=== PATIENT | male | born 1965 | race Caucasian/White ===

== ENCOUNTER 2016-10-06 03:50 | Inpatient (IN) ==
[2016-10-06] MEDS ORDERED: Ondansetron ODT 4 MG TAB.RAPDIS SL ONE (04:18)
[2016-10-06] MEDS ORDERED: 0.9 % Sodium Chloride 1,000 ML IVC ONE ×2 (04:18→05:28)
[2016-10-06] MEDS ORDERED: *HR* Morphine 2 MG/ML SYRINGE IVP ONE (04:18)
--- NOTE | 2016-10-06 04:26 | Emergency Department Note ---
Disposition Clinical Impression: Small bowel obstruction Disposition: Admitted As Inpatient Condition: Good Referrals: NO,PCP [Primary Care Provider] - Time of Disposition: 06:11 Abdominal Pain HPI - General Chief Complaint: ED Abdominal Pain Stated Complaint: "Bilat Flank/lower abd Pain" Time Seen by Provider: 10/06/16 04:03 Source: patient, family Mode of arrival: ambulatory Limitations: no limitations Nursing Notes Reviewed: Yes Vital Signs Reviewed: Yes - History of Present Illness HPI Narrative: 50-year-old male history of chronic back pain and CKD stage 4 presents with lower abdominal and bilateral flank pain. He reports last night around 1999 began to experience a dull stomach ache that seemed to resolve but around 2199 it returned more intense and sharp in sensation. Pain in the lower abdomen and bilateral flank pain without radiation of pain. Describes the pain as if his kidneys exploded. He has associated nausea and vomiting foamy secretions. Denies any recent illness, fever, cough, shortness of breath, or chest pain. He has difficulty with urination. Denies history of prostate issues. Frequent urination with some relief. Denies any bloody stool or black tarry stools. History of left testicle removal due to significant swelling. Other surgical history includes hernia repair. Denies any significant testicular pain or tenderness at this time. Denies any urinary incontinence, bowel incontinence, lower extremity weakness, or saddle anesthesia. He takes Percocet 10 for chronic disc herniations in his back. Dr. Pedro Bell is his head correction officer. He has seen Dr. Sloan several years ago 10+ years. Pt Subjective Complaint: abdominal pain Pain Scale: 10 - Related Data Home Medications Medication Instructions Recorded Confirmed Atorvastatin [Lipitor] 20 mg PO DAILY 05/06/15 12/30/15 Lisinopril [Zestril] 40 mg PO DAILY 05/06/15 12/30/15 Magnesium Oxide [Magnesium] 400 mg PO DAILY 05/06/15 12/30/15 Pantoprazole Sodium [Protonix] 40 mg PO DAILY 05/06/15 12/30/15 [place] Oil/[place]-3 Fatty Acids 1,000 mg PO DAILY 05/06/15 12/30/15 [Fish Oil 500 mg Softgel] Albuterol Sulfate [Ventolin Hfa] 18 gm IH QID PRN 12/30/15 12/30/15 Beclomethasone Diprop 40mcg [QVAR 1 puff IH BID 12/30/15 12/30/15 40 mcg] Beclomethasone Diprop 40mcg [Qvar 2 gm IH BID 12/30/15 12/30/15 40 mcg] Cilostazol [Pletal] 100 mg PO DAILY 12/30/15 12/30/15 EPINEPHrine [Epipen] 0.3 mg IM QMONTH PRN 12/30/15 12/30/15 Fenofibrate Nanocrystallized 145 mg PO DAILY 12/30/15 12/30/15 [Tricor] Gabapentin [Gabapentin] 600 mg PO TID 12/30/15 12/30/15 Previous Rx's Medication Instructions Recorded Metoprolol [Lopressor] 12.5 mg PO BID #60 tablet 05/06/15 Allergies Allergy/AdvReac Type Severity Reaction Status Date / Time venom-honey bee Allergy Anaphylaxis Verified 05/06/15 06:47 [bee venom (honey bee)] All systems ED: reviewed and negative except as stated. Constitutional: Denies: fever, chills Cardiovascular: Denies: chest pain Respiratory: Denies: cough, dyspnea Gastrointestinal: Reports: abdominal pain, nausea, vomiting. Denies: diarrhea, melena, hematochezia Genitourinary: Reports: dysuria, frequency. Denies: urgency, hematuria, testicular pain, testicular mass Musculoskeletal: Reports: back pain. Denies: neck pain Integumentary: Denies: rash, abrasion Neurological: Denies: headache Psychiatric: Denies: anxiety, depression Endocrine: Denies: fatigue Abdominal Pain PMH - Past Medical History Medical history: Reports: arthritis, asthma, COPD, DVT, GERD, hyperlipidemia, hypertension, renal disease, TIA, other Male Surgical History: Reports: other Psychiatric history: Reports: anxiety, depression - Social History Smoking status: Current every day smoker Alcohol use: Reports: none Drug use: Reports: none Physical Exam - General Limitations: no limitations General appearance: alert, in distress (uncomfortable) - Head Head exam: atraumatic, normocephalic, normal inspection - Eye Eye exam: Present: normal appearance, PERRL, EOMI. Absent: scleral icterus - ENT ENT exam: normal exam, normal oropharynx, mucous membranes moist - Neck Neck exam: Present: normal inspection, full ROM, trachea midline - Chest Chest inspection: Present: normal inspection, symmetric chest wall rise. Absent : tenderness - Respiratory Respiratory exam: Present: normal lung sounds bilaterally. Absent: respiratory distress, wheezes - Cardiovascular Cardiovascular exam: Present: regular rate, normal rhythm, normal heart sounds - Abdominal Exam Abdominal exam: Present: soft (obese), tenderness (mostly in the lower quadrants ), distention, guarding, normal bowel sounds. Absent: rebound, rigidity Abdominal tenderness: Present: diffuse - Male exam: Present: normal testicular lie, circumcised, other (absent left testicle). Absent: inguinal lymphadenopathy, testicular tenderness, scrotal swelling - Extremities Exam Extremities exam: Present: normal inspection, full ROM, normal capillary refill. Absent: tenderness, pedal edema, calf tenderness - Back Exam Back exam: Present: normal inspection, full ROM. Absent: tenderness, CVA tenderness (R), CVA tenderness (L) - Neurological Exam Neurological exam: Present: alert, oriented X3 - Psychiatric Psychiatric exam: Present: normal affect, normal mood - Skin Skin exam: Present: warm, dry, intact, normal color Course Course Narrative: 50-year-old male presents with abdominal pain. This occurred roughly last night. Describes it as his insides exploding. He typically takes Percocet [id number] for chronic back pain. Reports nausea and some vomiting. He appears very uncomfortable. Denies any history of kidney stones. Most of his tenderness is to the lower abdomen. He does not have any CVA tenderness. Bowel sounds are present. His abdomen is mildly distended. He has a history of removal of left testicle. His right testicle is nontender and is not in a horizontal lie. No appreciable inguinal hernia. Concern for possible kidney stone or intro abdominal pathology such as hernia incarceration, SBO, or diverticulitis. Will get basic labs in the CT of the abdomen and pelvis. Urinalysis. Morphine and Zofran for symptoms. Patient is in agreement with this plan. - Reevaluation(s) Reevaluation #1: Pain improved with morphine. He appears significantly more comfortable. He has a mild leukocytosis and creatinine 1.29. Urine does not appear infected. Awaiting results of CT scan, does not appear to have any kidney stones or hydronephrosis. Possible other underlying abdominal pathology. Continues to have some lower abdominal tenderness and distention, bedside bladder ultrasound performed, post-void he has 40.4 cm3. Time: 05:10 Reevaluation #2: CT abdomen and pelvis reveals distal SBO with transition point in the RLQ near prior hernia repair. There is some mesenteric edema without perforation or free air. Lactate added to labs. Will place NG tube. Receiving 2nd liter of fluids. Discomfort has returned, Dilaudid ordered for pain. Will consult surgery. Patient reports prior surgery with Dr. Sloan >10 years ago. Time: 05:40 Reevaluation #3: Patient pulled out NG tube. He takes coumadin and reports history of prior nasal surgeries. He is now having some epistaxis. Will attempt to place again once more comfortable. Spoke with the hospitalist Dr. Graham, he is aware of the situation and ok to transfer to the floor and place NG there. Another 1mg of dilaudid ordered. Time: 06:27 - Consultations Consultation #1: Spoke to Dr. Rey, surgeon, recommends NG tube insertion and admission to hospitalist. Will consult today on the floor. No further orders at this time. Time: 05:55 Consultation #2: Spoke with on-call hospitalist Dr. Graham, ok to admit for small bowel obstruction. No further orders at this time Time: 06:11 Vital Signs Temperature 98.4 F 10/06/16 03:52 Pulse Rate 95 10/06/16 03:52 Respiratory Rate 20 10/06/16 03:52 Blood Pressure 166/97 10/06/16 03:52 O2 Sat by Pulse Oximetry 98 10/06/16 03:52 Temperature 98.4 F 10/06/16 03:52 Pulse Rate 81 10/06/16 06:22 Respiratory Rate 18 10/06/16 06:27 Blood Pressure 153/77 10/06/16 06:27 O2 Sat by Pulse Oximetry 98 10/06/16 03:52 Oxygen Delivery Oxygen Delivery Room Air Abdominal Pain - Medical Records Medical records reviewed: Yes I reviewed the patient's medical records. - Lab Data Lab results reviewed: Yes I reviewed the patient's lab results. Result diagrams: 10/06/16 04:06 10/06/16 04:06 Lab Results 10/06/16 10/06/16 10/06/16 Range/Units 04:06 04:06 04:21 WBC 12.7 H (4.3-11.1) K/mcL RBC 5.25 (4.19-5.50) M/mcL Hgb 15.5 (12.9-16.9) g/dL Hct 46.1 (37.5-50.1) % MCV 87.8 (83.0-100.0) fL MCH 29.5 (28.0-33.3) pg MCHC 33.6 (31.6-35.5) g/dL RDW 12.6 (11.5-14.5) % Plt Count 331 (140-400) K/mcL MPV 10.6 (9.4-12.4) fL Immature Gran % 0.5 (0-4) % Seg Neutrophils % 75.8 % Lymphocytes % 16.5 % Monocytes % 4.9 % Eosinophils % 1.7 % Basophils % 0.6 % Neutrophils # 9.6 H (1.6-8.9) K/mcL Lymphocytes # 2.1 (0.6-4.6) K/mcL Monocytes # 0.6 (0.0-1.3) K/mcL Eosinophils # 0.2 (0.0-0.6) K/mcL Basophils # 0.1 (0.0-0.2) K/mcL Sodium 140 (136-145) mEq/L Potassium 4.1 (3.5-4.5) mEq/L Chloride 99 (98-109) mEq/L Carbon Dioxide 26 (19-29) mEq/L BUN 23 (8-26) mg/dL Creatinine 1.29 H (0.72-1.25) mg/dL Est GFR ( Amer) > 60 (> 60) Est GFR (Non-Af Amer) 58 L (> 60) BUN/Creatinine Ratio 18 (6-26) Glucose 139 H (70-99) mg/dL Calculated Osmolality 296 (280-300) Lactic Acid (0.5-2.2) mmol/L Calcium 11.0 H (8.6-10.8) mg/dL Total Bilirubin 0.8 (0.2-1.2) mg/dL Direct Bilirubin 0.3 (0.0-0.5) mg/dL Indirect Bilirubin 0.5 (0.0-1.2) mg/dL AST 38 H (5-34) Units/L ALT 44 (0-55) Units/L Alkaline Phosphatase 57 (38-126) Units/L Serum Total Protein 8.5 H (6.0-8.3) g/dL Albumin 4.6 (3.5-5.0) g/dL Globulin 3.9 H (2.4-3.5) g/dL Albumin/Globulin Ratio 1.2 (1.1-2.2) Lipase 20 (8-78) Units/L Urine Color Dark Yellow (Yellow) Urine Clarity Clear (Clear) Urine pH 8.5 H (5.0-8.0) pH Units Ur Specific [place] 1.030 H (1.010-1.025) Urine Protein 30 H (Neg-Trace) mg/dL Urine Glucose (UA) Normal (Normal) mg/dL Urine Ketones Negative (Negative) mg/dL Urine Blood Negative (Negative) Urine Nitrite Negative (Negative) Urine Bilirubin Negative (Negative) Urine Urobilinogen Normal (Normal) mg/dL Ur Leukocyte Esterase Negative (Negative) Urine Microscopic RBC 5-15 H (0-3) per hpf Urine Microscopic WBC 0-3 (0-3) per hpf Ur Squamous Epith Cells Moderate H (None-Few) per lpf Urine Bacteria None Seen (None-Few) per hpf Hyaline Casts None Seen (None-Few) per lpf Ur Culture Indicated? NO (NO) 10/06/16 Range/Units 06:07 WBC (4.3-11.1) K/mcL RBC (4.19-5.50) M/mcL Hgb (12.9-16.9) g/dL Hct (37.5-50.1) % MCV (83.0-100.0) fL MCH (28.0-33.3) pg MCHC (31.6-35.5) g/dL RDW (11.5-14.5) % Plt Count (140-400) K/mcL MPV (9.4-12.4) fL Immature Gran % (0-4) % Seg Neutrophils % % Lymphocytes % % Monocytes % % Eosinophils % % Basophils % % Neutrophils # (1.6-8.9) K/mcL Lymphocytes # (0.6-4.6) K/mcL Monocytes # (0.0-1.3) K/mcL Eosinophils # (0.0-0.6) K/mcL Basophils # (0.0-0.2) K/mcL Sodium (136-145) mEq/L Potassium (3.5-4.5) mEq/L Chloride (98-109) mEq/L Carbon Dioxide (19-29) mEq/L BUN (8-26) mg/dL Creatinine (0.72-1.25) mg/dL Est GFR ( Amer) (> 60) Est GFR (Non-Af Amer) (> 60) BUN/Creatinine Ratio (6-26) Glucose (70-99) mg/dL Calculated Osmolality (280-300) Lactic Acid 2.1 (0.5-2.2) mmol/L Calcium (8.6-10.8) mg/dL Total Bilirubin (0.2-1.2) mg/dL Direct Bilirubin (0.0-0.5) mg/dL Indirect Bilirubin (0.0-1.2) mg/dL AST (5-34) Units/L ALT (0-55) Units/L Alkaline Phosphatase (38-126) Units/L Serum Total Protein (6.0-8.3) g/dL Albumin (3.5-5.0) g/dL Globulin (2.4-3.5) g/dL Albumin/Globulin Ratio (1.1-2.2) Lipase (8-78) Units/L Urine Color (Yellow) Urine Clarity (Clear) Urine pH (5.0-8.0) pH Units Ur Specific [place] (1.010-1.025) Urine Protein (Neg-Trace) mg/dL Urine Glucose (UA) (Normal) mg/dL Urine Ketones (Negative) mg/dL Urine Blood (Negative) Urine Nitrite (Negative) Urine Bilirubin (Negative) Urine Urobilinogen (Normal) mg/dL Ur Leukocyte Esterase (Negative) Urine Microscopic RBC (0-3) per hpf Urine Microscopic WBC (0-3) per hpf Ur Squamous Epith Cells (None-Few) per lpf Urine Bacteria (None-Few) per hpf Hyaline Casts (None-Few) per lpf Ur Culture Indicated? (NO) - Radiology Data Radiology results reviewed: Yes I reviewed the patient's radiology results. Abdomen/Pelvis CT 10/06/16 04:19 IMPRESSION: 1. Findings are consistent with a distal small bowel obstruction with a transition point noted within the right lower quadrant along the anterior abdominal wall likely at the site of the patient's prior hernia repair, likely secondary to postoperative adhesions. There is adjacent mild mesenteric edema, without evidence of pneumatosis, perforation, free air, or abscess. 2. No urinary stones or hydronephrosis. 3. Stable bilateral renal cysts. 4. Diffuse hepatic steatosis. D/ / Jair Casey MD / Jair Casey MD Interpreting Provider: Jair Casey MD Attestation Statement - Attestation Attestation: I, John Morales MD, personally evaluated this patient and discussed their management with the resident physician. I reviewed the resident's note and agree with the documented findings, medical decision making, and plan of care. 50-year-old male presents to the emergency department with a complaint of some diffuse lower abdominal pain which started earlier this evening. The pain radiates to the bilateral flanks. No diarrhea. Patient states he had a bowel movement this evening prior to onset of the abdominal pain. There has been some nausea and several episodes of vomiting after onset of the abdominal pain. No dysuria or gross hematuria. No fever. On examination patient is a well-developed well-nourished male in no acute distress but does appear to be in moderate discomfort. He is alert and oriented 3. There is no cyanosis or diaphoresis. Breath sounds are clear and equal bilaterally. Heart regular rate and rhythm. Abdomen is soft with moderate diffuse abdominal tenderness, worse in the lower abdomen. Bowel sounds are hyperactive. Bilateral CVA tenderness. Labs reviewed. CT shows a distal small bowel obstruction with a transition point in the right lower quadrant anteriorly in the region of a previous inguinal hernia repair. Dr. Burt discussed the patient with the surgeon commercial subcontractor, Dr. Rey, and he recommended admission by the hospitalist. Hospitalist was consulted and accepted admission of the patient.
[2016-10-06 04:29] LABS: Basophils # 0.1 K/mcL (0.0-0.2); Basophils % 0.6 %; Eosinophils # 0.2 K/mcL (0.0-0.6); Eosinophils % 1.7 %; Hematocrit 46.1 % (37.5-50.1); Hemoglobin 15.5 g/dL (12.9-16.9); Immature Granulocytes % 0.5 % (0-4); Lymphocytes # 2.1 K/mcL (0.6-4.6); Lymphocytes % 16.5 %; Mean Corpuscular HGB Conc 33.6 g/dL (31.6-35.5); Mean Corpuscular Hemoglobin 29.5 pg (28.0-33.3); Mean Corpuscular Volume 87.8 fL (83.0-100.0); Mean Platelet Volume 10.6 fL (9.4-12.4); Monocytes # 0.6 K/mcL (0.0-1.3); Monocytes % 4.9 %; Neutrophils # 9.6 K/mcL (1.6-8.9); Platelet Count 331 K/mcL (140-400); Red Blood Count 5.25 M/mcL (4.19-5.50); Red Cell Distribution Width 12.6 % (11.5-14.5); Segmented Neutrophils % 75.8 %
[2016-10-06 04:38] LABS: Bilirubin,Urine Negative (Negative); Blood,Urine Negative (Negative); Clarity,Urine Clear (Clear); Color,Urine Dark Yellow (Yellow); Glucose,Urine (UA) Normal (Normal); Ketones,Urine Negative (Negative); Leukocyte Esterase,Urine Negative (Negative); Nitrite,Urine Negative (Negative); PH,Urine 8.5 pH Units (5.0-8.0); Protein,Urine 30 mg/dL (Neg-Trace); Urobilinogen,Urine Normal (Normal)
[2016-10-06 04:41] LABS: Alanine Aminotransferase 44 Units/L (0-55); Albumin 4.6 g/dL (3.5-5.0); Albumin/Globulin Ratio 1.2 (1.1-2.2); Alkaline Phosphatase 57 Units/L (38-126); Aspartate Amino Transferase 38 Units/L (5-34); BUN/Creatinine Ratio 18 (6-26); Bilirubin,Direct 0.3 mg/dL (0.0-0.5); Bilirubin,Indirect 0.5 mg/dL (0.0-1.2); Bilirubin,Total 0.8 mg/dL (0.2-1.2); Blood Urea Nitrogen 23 mg/dL (8-26); Carbon Dioxide 26 mEq/L (19-29); Chloride 99 mEq/L (98-109); Globulin 3.9 g/dL (2.4-3.5); Glucose 139 mg/dL (70-99); Lipase 20 Units/L (8-78); Osmolality,Calculated 296 (280-300); Sodium 140 mEq/L (136-145); Total Protein 8.5 g/dL (6.0-8.3); eGFR For African Americans > 60 (> 60); eGFR For Non-African Americans 58 (> 60)
[2016-10-06 04:41] LABS: Bacteria,Urine None Seen per hpf (None-Few); Hyaline Casts,Urine None Seen per lpf (None-Few); Squamous Epithelial Cell,Urine Moderate per lpf (None-Few); WBC,Urine 0-3 per hpf (0-3)
[2016-10-06 04:43] LABS: Potassium 4.1 mEq/L (3.5-4.5)
[2016-10-06] MEDS ORDERED: *HR* HYDROmorphone (PF) 1 MG/ML SYRINGE IVP ONE ×2 (05:22→06:30)
[2016-10-06] MEDS ORDERED: Ondansetron 4 MG/2 ML VIAL IVP PRN (06:13)
[2016-10-06] MEDS ORDERED: Naloxone 0.4 MG/ML INJ IVP PRN (06:13)
[2016-10-06] MEDS ORDERED: *HR* HYDROmorphone (PF) 1 MG/ML SYRINGE IVP PRN (06:13)
--- NOTE | 2016-10-06 06:21 | Internal Med History&Physical ---
Date of Encounter: 10/06/16 Time of Encounter: 06:16 Assessment and Plan (1) Small bowel obstruction Current visit: Yes Status: Acute Patient presents with sudden onset abdominal pain. He has a history of surgical repairs including hernia repairs 2 and cholecystectomy. Exam reveals patient in moderate distress due to abdominal pain and diffuse tenderness to palpation over the abdomen. CT scan reveals evidence of distal small bowel obstruction with transition point at the right lower quadrant near the abdominal wall. Patient will be admitted to the hospital to inpatient status. Expected to be in the hospital for at least 2 midnights. High risk due to possible need for surgical intervention if he does not respond to conservative management. Expected discharge disposition is to home. Surgery was consulted by emergency department and it was recommended that the patient have NG tube placed with suction. Patient will be kept nothing by mouth. NG tube will be contacted to intermittent low suction. Intravenous PPI. Hydration. (2) Hypertension Current visit: Yes Status: Chronic Control blood pressure. Monitor and if blood pressure is elevated, we will provide intravenous hydralazine when necessary. Qualifiers: Hypertension type: essential hypertension Qualified Code(s): I10 - Essential (primary) hypertension (3) Factor V Leiden Current visit: Yes Status: Chronic Patient is on Coumadin due to factor V [place]. Will hold Coumadin as the patient may require surgical intervention if he does not respond to conservative management. Follow-up INR. (4) Tobacco abuse disorder Current visit: Yes Status: Chronic Counseled regarding smoking cessation. Nicotine patch. (5) COPD (chronic obstructive pulmonary disease) Current visit: Yes Status: Chronic Stable without exacerbation. Breathing treatments as needed. Qualifiers: COPD type: unspecified COPD Qualified Code(s): J44.9 - Chronic obstructive pulmonary disease, unspecified (6) CKD (chronic kidney disease) Current visit: Yes Status: Chronic Hypertensive chronic kidney disease stage III being followed by nephrology. Renal function at baseline. Patient will be given intravenous fluid hydration as he is nothing by mouth. Avoid hypotension and nephrotoxic agents. Qualifiers: Chronic kidney disease stage: stage 3 (moderate) Qualified Code(s): N18.3 - Chronic kidney disease, stage 3 (moderate) (7) Obesity (BMI 30.0-34.9) Current visit: Yes Status: Acute Internal Medicine - H&P: HPI Chief complaint: Abdominal pain Admitted From: Emergency Dept Plans for Post Hospital Care: Home History of present illness: Mr. Nelson is a 50 year old male who presented to the emergency department with abdominal pain. She states that the pain started last night at 8 PM off about 10/10 intensity in the lower abdomen that has been burning in nature and radiates into the back. No aggravating factors but relieved after he had an episode of vomiting. Associated with nausea, vomiting. Patient states that his last bowel movement was yesterday. He states that he has not passed gas today. Reports some chills but denies any fever. He denies any chest pain, shortness of breath, cough or wheezing. He denies any swelling in his legs or rash. He reports chronic difficulty urinating but denies any burning or pain with urination. Past Med Surg Social Fam HX - Past Medical History Attestation: Yes The following information was validated with the patient. Source: patient Medical history: arthritis, COPD, DVT, GERD, hyperlipidemia, hypertension, renal disease (Chronic kidney disease stage III), TIA Psychiatric history: anxiety, depression - Past Surgical History Surgical History: cholecystectomy, herniorrhaphy (Hernia repair bilaterally and testicular surgery) - Social History Smoking Status: Current every day smoker Packs per day: 2 Smokeless Tobacco Status: No Alcohol use: none Drug use: none Current living situation: Home, With Family (Takes care of his mother) Activity Level: Independent ambulation Recent Out of Country Travel Within the Last 8 Weeks: No Exposure or Possible Exposure to Illness During Travel: No - Family History Mother Adopted: No Family Member Ethnicity: Non- Living Status: Still Living Hx Family Cardiac Disorders: No Hx Family Respiratory Disorders: No Hx Family Cancer: Yes (lymph nodes, liver) Hx Family GI Disorders: No Hx Family Endocrine Disorder: No Hx Family Neuromuscular Disorders: No Hx Family Neurologic Disorders: No Hx Family HEENT Disorders: No Hx Family Autoimmune Disorders: Yes (factor 5) Internal Medicine - H&P: Meds Atorvastatin [Lipitor] 20 mg PO DAILY 05/06/15 [History] Lisinopril [Zestril] 40 mg PO DAILY 05/06/15 [History] Magnesium Oxide [Magnesium] 400 mg PO DAILY 05/06/15 [History] Metoprolol [Lopressor] 12.5 mg PO BID #60 tablet 05/06/15 [Rx] Pantoprazole Sodium [Protonix] 40 mg PO DAILY 05/06/15 [History] [place] Oil/[place]-3 Fatty Acids [Fish Oil 500 mg Softgel] 1,000 mg PO DAILY 05/06 [History] Albuterol Sulfate [Ventolin Hfa] 18 gm IH QID PRN 12/30/15 [History] Beclomethasone Diprop 40mcg [QVAR 40 mcg] 1 puff IH BID 12/30/15 [History] Beclomethasone Diprop 40mcg [Qvar 40 mcg] 2 gm IH BID 12/30/15 [History] Cilostazol [Pletal] 100 mg PO DAILY 12/30/15 [History] EPINEPHrine [Epipen] 0.3 mg IM QMONTH PRN 12/30/15 [History] Fenofibrate Nanocrystallized [Tricor] 145 mg PO DAILY 12/30/15 [History] Gabapentin [Gabapentin] 600 mg PO TID 12/30/15 [History] Allergies venom-honey bee [bee venom (honey bee)] Allergy (Verified 05/06/15 06:47) Anaphylaxis All Systems PM: A 10-system review of systems was performed and is negative for pertinent findings except as documented above in the HPI. Review of systems: 10 systems have been reviewed and are negative except as mentioned in the history of present illness - Constitutional Vitals: Temp Pulse Resp BP Pulse Ox 98.4 F 95 20 166/97 98 10/06/16 03:52 10/06/16 03:52 10/06/16 03:52 10/06/16 03:52 10/06/16 03:52 Exam: Gen.: Lying in bed. Moderate distress. Eyes: Pupils equal, round and reactive to light. Extraocular muscles intact. ENT: Moist mucous membranes. No oropharyngeal erythema or discharge. Blood in the right nostril. Chest: Clear to auscultation bilaterally. No adventitious sounds present. CVS: First and second heart sounds present. No murmurs, rubs or gallops. Abdomen: Soft, diffusely tender to palpation without rebound tenderness, guarding or rigidity; obese. Bowel sounds present. No hepatosplenomegaly. Skin: No decubitus ulcers appreciated. SECURITY FIELD SUPERVISOR: No focal neuro deficits present. Psychiatric: Alert, awake and oriented to time, place and person. Lymphatic system: No lymphadenopathy appreciated Internal Med - H&P Results - Labs CBC & Chem 7: 10/06/16 04:06 06/08/17 04:06 Labs: Short CBC 10/06/16 Range/Units 04:06 WBC 12.7 H (4.3-11.1) K/mcL Hgb 15.5 (12.9-16.9) g/dL Hct 46.1 (37.5-50.1) % Plt Count 331 (140-400) K/mcL Neutrophils # 9.6 H (1.6-8.9) K/mcL BMP 10/06/16 04:06 Sodium 140 Potassium 4.1 Chloride 99 Carbon Dioxide 26 BUN 23 Creatinine 1.29 H Glucose 139 H Calcium 11.0 H Liver Function 10/06/16 Range/Units 04:06 Total Bilirubin 0.8 (0.2-1.2) mg/dL Direct Bilirubin 0.3 (0.0-0.5) mg/dL AST 38 H (5-34) Units/L ALT 44 (0-55) Units/L Alkaline Phosphatase 57 (38-126) Units/L Albumin 4.6 (3.5-5.0) g/dL Urine 10/06/16 Range/Units 04:21 Urine Color Dark Yellow (Yellow) Urine Clarity Clear (Clear) Urine pH 8.5 H (5.0-8.0) pH Units Ur Specific [place] 1.030 H (1.010-1.025) Urine Protein 30 H (Neg-Trace) mg/dL Urine Glucose (UA) Normal (Normal) mg/dL - Impressions ITS Impressions Abdomen/Pelvis CT 10/06/16 04:19 IMPRESSION: 1. Findings are consistent with a distal small bowel obstruction with a transition point noted within the right lower quadrant along the anterior abdominal wall likely at the site of the patient's prior hernia repair, likely secondary to postoperative adhesions. There is adjacent mild mesenteric edema, without evidence of pneumatosis, perforation, free air, or abscess. 2. No urinary stones or hydronephrosis. 3. Stable bilateral renal cysts. 4. Diffuse hepatic steatosis. D/ / Jair Casey MD / Jair Casey MD Interpreting Provider: Jair Casey MD - Diagnostic Studies CT scan - abdomen Status: image reviewed by me (Distal small bowel obstruction with a transition point at the right side abdominal wall. Diffuse hepatic steatosis and renal cysts are present)
[2016-10-06] MEDS ORDERED: D5% in 0.9% NACL 1,000 ML IVC SCH (06:45)
[2016-10-06] MEDS ORDERED: Pantoprazole 40 MG VIAL IVP SCH (09:00)
[2016-10-06] MEDS ORDERED: Nicotine 21 MG PATCH.TD24 TD SCH (09:00)
[2016-10-06] MEDS: *HR* HYDROmorphone (PF) 1 MG/ML SYRINGE IVP PRN ×7 (09:21→22:50)
[2016-10-06] MEDS ORDERED: traMADol 50 MG TABLET PO PRN (11:35)
--- NOTE | 2016-10-06 15:35 | General Surgery Consult Note ---
Date of Encounter: 10/06/16 Time of Encounter: 15:30 Assessment and Plan (1) Small bowel obstruction Current Visit: Yes Status: Acute At this point I do not see compelling evidence for mechanical bowel obstruction. The patient has no vomiting and had a normal bowel movement yesterday. He does have abdominal pain crampy in nature and CAT scan of the abdomen changes. For this reason I think that observation and IV hydration is warranted for 24 hours. If he is still symptomatic small bowel follow-through may be helpful. History of Present Illness Consult date: 10/06/16 Reason for consult: abdominal pain History of present illness: The patient is had one half days of crampy abdominal pain. The pain is central. He has no nausea or vomiting. He states that he has paroxysms of crampy pain with a continuous component. The pain is not localized. The pain is diffuse in all quadrants. He sought evaluation in the emergency department. A CAT scan demonstrated partial bowel obstruction with a possible transition point. He has previously had umbilical hernia repair. I personally reviewed the CAT scan. There is a size difference between the proximal and distal small bowel. I do not appreciate a discrete transition point. There are no inflammatory changes. Right talk patient he states that he simply could not get a nasogastric tube to go to either nares and when thhe tried, he developed epistaxis. His last bowel movement was yesterday morning and was normal. This point I do not see evidence for immediate surgical exploration. I think it is reasonable to perform hydration and pain management and obtain a small bowel follow-through tomorrow if the patient is still symptomatic. Past Med Surg Social Fam HX - Past Medical History Medical history: arthritis, asthma, COPD, DVT, GERD, hyperlipidemia, hypertension, renal disease, TIA, other Psychiatric history: anxiety, depression - Past Surgical History Surgical History: cholecystectomy, herniorrhaphy - Social History Smoking Status: Current every day smoker Packs per day: 2 Smokeless Tobacco Status: No Alcohol use: none Drug use: none - Family History Mother Adopted: No Family Member Ethnicity: Non- Living Status: Still Living Hx Family Cardiac Disorders: No Hx Family Respiratory Disorders: No Hx Family Cancer: Yes (lymph nodes, liver) Hx Family GI Disorders: No Hx Family Endocrine Disorder: No Hx Family Neuromuscular Disorders: No Hx Family Neurologic Disorders: No Hx Family HEENT Disorders: No Hx Family Autoimmune Disorders: Yes (factor 5) Medications and Allergies Atorvastatin [Lipitor] 40 mg PO DAILY 05/06/15 [History] Magnesium Oxide [Magnesium] 400 mg PO DAILY 05/06/15 [History] Pantoprazole Sodium [Protonix] 40 mg PO DAILY 05/06/15 [History] [place] Oil/[place]-3 Fatty Acids [Fish Oil 500 mg Softgel] 1,000 mg PO DAILY 05/06 [History] Albuterol Sulfate [Ventolin Hfa] 18 gm IH QID PRN 12/30/15 [History] Cilostazol [Pletal] 100 mg PO BID 12/30/15 [History] EPINEPHrine [Epipen] 0.3 mg IM QMONTH PRN 12/30/15 [History] Fenofibrate Nanocrystallized [Tricor] 145 mg PO DAILY 12/30/15 [History] Gabapentin [Gabapentin] 600 mg PO TID 12/30/15 [History] Aspirin 81 mg PO DAILY 10/06/16 [History] Carvedilol [Carvedilol] 3.125 mg PO BID 10/06/16 [History] Cetirizine HCl [Zyrtec] 10 mg PO DAILY 10/06/16 [History] Fluticasone Propionate Nasal [Flonase] 2 spray NS DAILY 10/06/16 [History] Isosorbide MONOnitrate (24 HR) [Imdur] 30 mg PO DAILY 10/06/16 [History] Lisinopril/Hydrochlorothiazide [Zestoretic 20-25 mg Tablet] 1 each PO DAILY 12/15 [History] Oxycodone HCl/Acetaminophen [Percocet 5-325 mg Tablet] 1 each PO TID PRN [History] Tiotropium [place] [Spiriva Respimat] 1 puff IH DAILY 10/06/16 [History] Tizanidine HCl 4 mg PO TID PRN 10/06/16 [History] Warfarin [Coumadin] 7.5 mg PO AD 10/06/16 [History] hydroCHLOROthiazide [Hydrochlorothiazide] 25 mg PO DAILY 10/06/16 [History] Allergies venom-honey bee [bee venom (honey bee)] Allergy (Verified 10/06/16 09:22) Anaphylaxis Review of Systems All systems PM: A 10-system review of systems was performed and is negative for pertinent findings except as documented above in the HPI. General Surgery Exam Initial Vital Signs Temp Pulse Resp BP Pulse Ox 98.4 F 95 20 166/97 98 10/06/16 03:52 10/06/16 03:52 10/06/16 03:52 10/06/16 03:52 10/06/16 03:52 - General physical appearance well developed, moderate distress, moderate pain - Neck no masses, no bruits, trachea midline, no lymphadectomy, no venous distension - Respiratory normal expansion, normal respiratory effort, clear to percussion, clear to auscultation - Cardiovascular Cardiovascular exam: Present: RRR, no murmurs/rubs/gallops - Abdomen Abdomen general surgery: Present: bowel sounds present, tender Abdominal Tenderness: Present: diffusely (No localization,no guarding ,no rebound) - Neurologic Present: CN 2-12 grossly intact, normal coordination, normal sensation - Psychiatric Psychiatric general surgery: Present: appropriate, oriented to person, oriented to place, oriented to time, speech is normal, memory intact Exam Initial Vital Signs Temp Pulse Resp BP Pulse Ox 98.4 F 95 20 166/97 98 10/06/16 03:52 10/06/16 03:52 10/06/16 03:52 10/06/16 03:52 10/06/16 03:52 Results - Labs 10/06/16 04:06 10/06/16 04:06 Abnormal lab results WBC 12.7 K/mcL (4.3-11.1) H 10/06/16 04:06 Neutrophils # 9.6 K/mcL (1.6-8.9) H 10/06/16 04:06 Creatinine 1.29 mg/dL (0.72-1.25) H 10/06/16 04:06 Est GFR (Non-Af Amer) 58 (> 60) L 10/06/16 04:06 Glucose 139 mg/dL (70-99) H 10/06/16 04:06 Calcium 11.0 mg/dL (8.6-10.8) H 10/06/16 04:06 AST 38 Units/L (5-34) H 10/06/16 04:06 Serum Total Protein 8.5 g/dL (6.0-8.3) H 10/06/16 04:06 Globulin 3.9 g/dL (2.4-3.5) H 10/06/16 04:06 Urine pH 8.5 pH Units (5.0-8.0) H 10/06/16 04:21 Ur Specific [place] 1.030 (1.010-1.025) H 10/06/16 04:21 Urine Protein 30 mg/dL (Neg-Trace) H 10/06/16 04:21 Urine Microscopic RBC 5-15 per hpf (0-3) H 10/06/16 04:21 Ur Squamous Epith Cells Moderate per lpf (None-Few) H 10/06/16 04:21 All other labs normal. - Imaging CT scan - abdomen: image reviewed (I personally reviewed the CAT scan of the abdomen. There does not appear to be a mechanical bowel obstruction. There is diameter difference between the proximal and distal small bowel.) Consult Discharge Plan - Plan Referrals: Jose Sood MD [Partnered Physician] -
[2016-10-06] MEDS: D5% in 0.9% NACL 1,000 ML IVC SCH (19:49)
[2016-10-07] MEDS: *HR* HYDROmorphone (PF) 1 MG/ML SYRINGE IVP PRN ×3 (01:39→07:53)
[2016-10-07] MEDS: D5% in 0.9% NACL 1,000 ML IVC SCH (05:18)
[2016-10-07 05:34] LABS: Basophils # 0.1 K/mcL (0.0-0.2); Basophils % 0.6 %; Eosinophils # 0.2 K/mcL (0.0-0.6); Eosinophils % 2.3 %; Immature Granulocytes % 0.5 % (0-4); Lymphocytes # 2.7 K/mcL (0.6-4.6); Lymphocytes % 33.4 %; Mean Corpuscular HGB Conc 32.4 g/dL (31.6-35.5); Mean Corpuscular Hemoglobin 29.2 pg (28.0-33.3); Mean Corpuscular Volume 90.3 fL (83.0-100.0); Mean Platelet Volume 10.3 fL (9.4-12.4); Monocytes # 0.6 K/mcL (0.0-1.3); Monocytes % 7.2 %; Neutrophils # 4.5 K/mcL (1.6-8.9); Platelet Count 202 K/mcL (140-400); Red Blood Count 4.21 M/mcL (4.19-5.50); Red Cell Distribution Width 12.8 % (11.5-14.5)
[2016-10-07 05:38] LABS: Hemoglobin 12.3 g/dL (12.9-16.9)
[2016-10-07 05:56] LABS: Alanine Aminotransferase 41 Units/L (0-55); Albumin/Globulin Ratio 1.2 (1.1-2.2); Alkaline Phosphatase 40 Units/L (38-126); Aspartate Amino Transferase 36 Units/L (5-34); BUN/Creatinine Ratio 18 (6-26); Blood Urea Nitrogen 14 mg/dL (8-26); Carbon Dioxide 23 mEq/L (19-29); Chloride 111 mEq/L (98-109); Globulin 2.6 g/dL (2.4-3.5); Glucose 117 mg/dL (70-99); Osmolality,Calculated 296 (280-300); Potassium 3.5 mEq/L (3.5-4.5); Sodium 142 mEq/L (136-145); eGFR For African Americans > 60 (> 60); eGFR For Non-African Americans > 60 (> 60)
[2016-10-07 05:57] LABS: Albumin 3.2 g/dL (3.5-5.0); Calcium 8.5 mg/dL (8.6-10.8); Total Protein 5.8 g/dL (6.0-8.3)
[2016-10-07 05:59] LABS: INR 1.5; Prothrombin Time 16.3 Seconds (9.4-12.1)
--- NOTE | 2016-10-07 07:10 | General Surgery Progress Note ---
Date of Encounter: 10/07/16 Time of Encounter: 07:00 - Assessment and Plan (1) Small bowel obstruction Current Visit: Yes Status: Acute At this point I do not see compelling evidence for mechanical bowel obstruction. The patient has no vomiting and had a normal bowel movement yesterday. He does have abdominal pain crampy in nature and CAT scan of the abdomen changes. For this reason I think that observation and IV hydration is warranted for 24 hours. If he is still symptomatic small bowel follow-through may be helpful. 10/07/2016. This morning the patient has no complaints of abdominal pain. He had 2 bowel movements. He has no nausea or vomiting. We will start clear liquids. There is no clinical evidence of bowel obstruction. Subjective Narrative: The patient states that he has had improvement in his abdominal pain. He had 2 bowel movements. There is been no nausea or vomiting. This appears to be in a transient ileus or low-grade partial bowel obstruction that has resolved. I would recommend starting a diet and advancing Objective Vital Signs - Last 8 Hours Temp Pulse Resp BP Pulse Ox 10/07/16 05:18 20 97 10/07/16 01:39 107/66 10/06/16 23:53 98.7 F 73 18 98/57 93 Intake and Output 10/06/16 10/06/16 10/07/16 15:59 23:59 07:59 Intake Total 537 / 537 703 / 703 Output Total 100 / 100 275 / 275 275 / 275 Balance -100 / -100 262 / 262 428 / 428 Intake: IV Fluids 297 / 297 703 / 703 D5% And 0.9% Nacl 1000 Ml 297 / 297 703 / 703 1,000 ML @ 100 mls/hr IVC .Q10H [facility] Rx#: [id number] Oral 240 / 240 Output: Urine 100 / 100 275 / 275 275 / 275 Other: Meal npo npo Stool Size Small Small Stool Consistency formed formed Stool Color Brown Brown # Bowel Movements 1 Weight 85.548 kg Blood Glucose* 115 110 Patient Weight 10/07/16 23:59 Weight 85.548 kg - General physical appearance well developed, well nourished, no distress - Respiratory normal expansion, normal respiratory effort, clear to percussion, clear to auscultation - Cardiovascular Cardiovascular exam: Present: RRR, no murmurs/rubs/gallops - Abdomen Abdomen: Present: bowel sounds present, soft, non tender - Neurologic normal coordination, normal sensation - Psychiatric oriented to time, oriented to person, oriented to place, speech is normal, memory intact - Labs 10/07/16 05:14 10/07/16 05:14 Diabetes panel 10/07/16 Range/Units 05:14 Sodium 142 (136-145) mEq/L Potassium 3.5 (3.5-4.5) mEq/L Chloride 111 H (98-109) mEq/L Carbon Dioxide 23 (19-29) mEq/L BUN 14 (8-26) mg/dL Creatinine 0.80 (0.72-1.25) mg/dL Glucose 117 H (70-99) mg/dL Calcium 8.5 L D (8.6-10.8) mg/dL AST 36 H (5-34) Units/L ALT 41 (0-55) Units/L Alkaline Phosphatase 40 (38-126) Units/L Albumin 3.2 L D (3.5-5.0) g/dL Calcium panel 10/07/16 Range/Units 05:14 Calcium 8.5 L D (8.6-10.8) mg/dL Albumin 3.2 L D (3.5-5.0) g/dL Pituitary panel 10/07/16 Range/Units 05:14 Sodium 142 (136-145) mEq/L Potassium 3.5 (3.5-4.5) mEq/L Chloride 111 H (98-109) mEq/L Carbon Dioxide 23 (19-29) mEq/L BUN 14 (8-26) mg/dL Creatinine 0.80 (0.72-1.25) mg/dL Glucose 117 H (70-99) mg/dL Calcium 8.5 L D (8.6-10.8) mg/dL Adrenal panel 10/07/16 Range/Units 05:14 Sodium 142 (136-145) mEq/L Potassium 3.5 (3.5-4.5) mEq/L Chloride 111 H (98-109) mEq/L Carbon Dioxide 23 (19-29) mEq/L BUN 14 (8-26) mg/dL Creatinine 0.80 (0.72-1.25) mg/dL Glucose 117 H (70-99) mg/dL Calcium 8.5 L D (8.6-10.8) mg/dL Total Bilirubin 1.0 (0.2-1.2) mg/dL AST 36 H (5-34) Units/L ALT 41 (0-55) Units/L Alkaline Phosphatase 40 (38-126) Units/L Albumin 3.2 L D (3.5-5.0) g/dL Consult Discharge Plan - Plan Referrals: Leonie Cortez DO [Non-Partnered Physician] -
[2016-10-07 08:24] VITALS: BP 138/85
[2016-10-07] MEDS ORDERED: (Tiotropium Bromide [Spiriva Respimat] 1 PUFF) IH SCH (09:00)
--- NOTE | 2016-10-07 14:02 | Discharge Summary ---
Date of Encounter: 10/07/16 Time of Encounter: 14:00 - Discharge Diagnosis (1) Hypertension Priority: Secondary Status: Chronic Qualifiers: Hypertension type: essential hypertension Qualified Code(s): I10 - Essential (primary) hypertension (2) COPD (chronic obstructive pulmonary disease) Priority: Secondary Status: Chronic Qualifiers: COPD type: unspecified COPD Qualified Code(s): J44.9 - Chronic obstructive pulmonary disease, unspecified (3) Small bowel obstruction Priority: Primary Status: Acute - Discharge Medications Home Medications: Atorvastatin [Lipitor] 40 mg PO DAILY 05/06/15 [History] Magnesium Oxide [Magnesium] 400 mg PO DAILY 05/06/15 [History] Pantoprazole Sodium [Protonix] 40 mg PO DAILY 05/06/15 [History] [place] Oil/[place]-3 Fatty Acids [Fish Oil 500 mg Softgel] 1,000 mg PO DAILY 05/06 [History] Albuterol Sulfate [Ventolin Hfa] 18 gm IH QID PRN 12/30/15 [History] Cilostazol [Pletal] 100 mg PO BID 12/30/15 [History] EPINEPHrine [Epipen] 0.3 mg IM QMONTH PRN 12/30/15 [History] Fenofibrate Nanocrystallized [Tricor] 145 mg PO DAILY 12/30/15 [History] Gabapentin [Gabapentin] 600 mg PO TID 12/30/15 [History] Aspirin 81 mg PO DAILY 10/06/16 [History] Carvedilol [Carvedilol] 3.125 mg PO BID 10/06/16 [History] Cetirizine HCl [Zyrtec] 10 mg PO DAILY 10/06/16 [History] Fluticasone Propionate Nasal [Flonase] 2 spray NS DAILY 10/06/16 [History] Isosorbide MONOnitrate (24 HR) [Imdur] 30 mg PO DAILY 10/06/16 [History] Lisinopril/Hydrochlorothiazide [Zestoretic 20-25 mg Tablet] 1 each PO DAILY 12/15 [History] Oxycodone HCl/Acetaminophen [Percocet 5-325 mg Tablet] 1 each PO TID PRN [History] Tiotropium [place] [Spiriva Respimat] 1 puff IH DAILY 10/06/16 [History] Tizanidine HCl 4 mg PO TID PRN 10/06/16 [History] Warfarin [Coumadin] 7.5 mg PO AD 10/06/16 [History] hydroCHLOROthiazide [Hydrochlorothiazide] 25 mg PO DAILY 10/06/16 [History] Allergies/Adverse Reactions: Allergies venom-honey bee [bee venom (honey bee)] Allergy (Verified 10/06/16 09:22) Anaphylaxis Date of admission: 10/06/16 06:54 Primary care physician: PCP NO Discharging clinician: Tatum Phelps Anticipated date of discharge: 10/07/16 - Patient Status Disposition: Left Against Medical Advice Condition: Good - Discharge Instructions Follow Up With: Leonie Cortez DO [Non-Partnered Physician] - Interval History: javier was admitted for SBO , surgery was consulted and was following the javier he signed out today before my evaluation. Hospital course: Mr. Nelson is a 50 year old male - Time Spent with Patient Total time spent providing and/or coordinating discharge services: - Constitutional Vitals: Temp Pulse Resp BP Pulse Ox 97.8 F 69 16 138/85 96 10/07/16 08:23 10/07/16 08:23 10/07/16 08:23 10/07/16 08:23 10/07/16 08:23 Exam: exam not done as he signed out
== END 2016-10-07 09:00 | disposition left against medical advice (07) | DRG 222 ==
LOC: EMEROO 03:50 → 3ANU 03:50
PROVIDERS: ADMIT Internal Medicine Endocrinology, Diabetes & Metabolism; ATTEND Internal Medicine Endocrinology, Diabetes & Metabolism

== ENCOUNTER 2016-12-25 22:12 | Inpatient (IN) ==
[2016-12-25] MEDS ORDERED: 0.9 % Sodium Chloride 1,000 ML IVC ONE ×2 (22:20→23:43)
--- NOTE | 2016-12-25 22:27 | Emergency Department Note ---
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 he is therapeutic on Coumadin at this time. Patient with an elevated lactate on arrival which is responding to fluids repeat lactate was much improved from the initial. We are continuing IV fluids at this time. Patient with no source of infection on chest x-ray or urinalysis as well as clinically. Patient does have polysubstances in his urine and admitted to substance abuse over the past 24 hours but denied any cocaine use. Patient with improved hematologic stability at this time, discussed the case with hospitalist to has agreed to patient for admission. Patient also with low magnesium which we will repeat we will begin replacement on in the ED.
[2016-12-25 22:58] LABS: Basophils # 0.1 K/mcL (0.0-0.2); Basophils % 0.7 %; Eosinophils # 0.3 K/mcL (0.0-0.6); Eosinophils % 2.4 %; Hematocrit 40.7 % (37.5-50.1); Hemoglobin 13.6 g/dL (12.9-16.9); Immature Granulocytes % 1.3 % (0-4); Lymphocytes # 2.4 K/mcL (0.6-4.6); Lymphocytes % 17.3 %; Mean Corpuscular HGB Conc 33.4 g/dL (31.6-35.5); Mean Corpuscular Hemoglobin 28.2 pg (28.0-33.3); Mean Corpuscular Volume 84.3 fL (83.0-100.0); Mean Platelet Volume 10.1 fL (9.4-12.4); Monocytes # 0.8 K/mcL (0.0-1.3); Monocytes % 5.6 %; Neutrophils # 9.9 K/mcL (1.6-8.9); Platelet Count 278 K/mcL (140-400); Red Blood Count 4.83 M/mcL (4.19-5.50); Red Cell Distribution Width 12.8 % (11.5-14.5); Segmented Neutrophils % 72.7 %
[2016-12-25 23:04] LABS: INR 1.9; Prothrombin Time 20.8 Seconds (9.4-12.1)
[2016-12-25 23:07] LABS: Activated Partial Thrombo Time 35.7 Seconds (26.0-36.0)
[2016-12-25 23:42] LABS: ABG Base Excess -3.6 mEq/L (-2.0 to 3.0); ABG HCO3 16.7 mEQ/L (21-27); ABG Oxygen Saturation 98 % (95-98); ABG PH 7.53 pH Units (7.32-7.45); ABG PO2 89 mmHg (85-104); ABG TCO2 17.3 mEq/L (20-26)
[2016-12-25 23:43] LABS: Blood Gas FiO2 28 %; Blood Gas Liter Flow 2 L/MIN
[2016-12-25] MEDS ORDERED: Ondansetron 4 MG/2 ML VIAL IVP ONE (23:44)
[2016-12-25] MEDS ORDERED: *HR* HYDROmorphone (PF) 1 MG/ML SYRINGE IVP ONE (23:44)
[2016-12-25 23:45] LABS: ABG PCO2 20 mmHg (35-45)
[2016-12-25] MEDS ORDERED: Aspirin 81 MG TAB.CHEW PO STA (23:48)
[2016-12-25 23:50] LABS: Alanine Aminotransferase 48 Units/L (0-55); Albumin 3.3 g/dL (3.5-5.0); Albumin/Globulin Ratio 1.1 (1.1-2.2); Alkaline Phosphatase 81 Units/L (38-126); Aspartate Amino Transferase 23 Units/L (5-34); BUN/Creatinine Ratio 15 (6-26); Bilirubin,Direct 0.1 mg/dL (0.0-0.5); Bilirubin,Indirect 0.2 mg/dL (0.0-1.2); Bilirubin,Total 0.3 mg/dL (0.2-1.2); Blood Urea Nitrogen 17 mg/dL (8-26); Carbon Dioxide 14 mEq/L (19-29); Chloride 102 mEq/L (98-109); Globulin 3.1 g/dL (2.4-3.5); Glucose 174 mg/dL (70-99); Lipase 34 Units/L (8-78); Magnesium 1.3 mg/dL (1.6-2.6); Osmolality,Calculated 288 (280-300); Potassium 3.6 mEq/L (3.5-4.5); Sodium 136 mEq/L (136-145); Total Protein 6.4 g/dL (6.0-8.3); eGFR For African Americans > 60 (> 60); eGFR For Non-African Americans > 60 (> 60)
[2016-12-25 23:51] LABS: Phosphorous 0.8 mg/dL (2.3-4.7)
[2016-12-26 00:03] LABS: Bilirubin,Urine Negative (Negative); Blood,Urine Negative (Negative); Clarity,Urine Clear (Clear); Color,Urine Yellow (Yellow); Glucose,Urine (UA) Normal (Normal); Ketones,Urine Negative (Negative); Leukocyte Esterase,Urine Negative (Negative); Nitrite,Urine Negative (Negative); PH,Urine 7.5 pH Units (5.0-8.0); Protein,Urine Trace mg/dL (Neg-Trace); Specific Gravity,Urine 1.011 (1.010-1.025); Urobilinogen,Urine Normal (Normal)
[2016-12-26 00:04] LABS: Amphetamine Screen,Urine Positive ng/mL (Cutoff=1000); Barbiturate Screen,Urine Negative ng/mL (Cutoff=200); Benzodiazepines Screen,Urine Negative ng/mL (Cutoff=200); Cannabinoid Screen,Urine Negative ng/mL (Cutoff = 50); Cocaine Screen,Urine Negative ng/mL (Cutoff= 300); Opiate Screen,Urine Positive ng/mL (Cutoff=300); Phencyclidine Screen,Urine Negative ng/mL (Cutoff=25)
[2016-12-26 00:10] LABS: Bacteria,Urine Few per hpf (None-Few); Sperm,Urine Present; Squamous Epithelial Cell,Urine Few per lpf (None-Few)
[2016-12-26] MEDS ORDERED: Magnesium Sulfate 20 gm/500mL 20 GM/500 ML IV.SOLN IVC SCH (01:15)
[2016-12-26] MEDS ORDERED: *HR* Morphine 2 MG/ML SYRINGE IVP PRN (01:22)
[2016-12-26] MEDS ORDERED: *HR* Promethazine 25 MG/ML VIAL IVP PRN (01:26)
[2016-12-26] MEDS ORDERED: Acetaminophen 325 MG TABLET PO PRN (01:28)
[2016-12-26] MEDS ORDERED: Naloxone 0.4 MG/ML INJ IVP PRN (01:28)
[2016-12-26] MEDS ORDERED: 0.9 % Sodium Chloride 1,000 ML IVC SCH ×2 (01:30→08:00)
[2016-12-26] MEDS ORDERED: Nitroglycerin 25 MG/250 ML INFUS..BTL IVC SCH (01:30)
[2016-12-26] MEDS: Nitroglycerin 0.4 MG TAB.SUBL SL PRN ×2 (01:38→01:45)
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
[2016-12-26] MEDS ORDERED: 0.9 % Sodium Chloride 1,000 ML IVC ONE (01:52)
[2016-12-26] MEDS: 0.9 % Sodium Chloride 500 ML IVC ONE ×2 (01:57→02:02)
[2016-12-26] MEDS ORDERED: *HR* Heparin 5,000 UNIT/ML VIAL IVP PRN ×4 (02:36→03:47)
[2016-12-26] MEDS ORDERED: *HR* Heparin 5,000 UNIT/ML VIAL IVP ONE ×2 (02:36→03:47)
[2016-12-26] MEDS ORDERED: Heparin 25,000 UNIT/500 ML D5W 25,000 UNIT/500 ML MLS IVC SCH (02:45)
[2016-12-26 04:17] LABS: Basophils # 0.1 K/mcL (0.0-0.2); Basophils % 0.4 %; Eosinophils # 0.1 K/mcL (0.0-0.6); Eosinophils % 0.7 %; Hematocrit 39.2 % (37.5-50.1); Hemoglobin 13.1 g/dL (12.9-16.9); Immature Granulocytes % 0.8 % (0-4); Lymphocytes # 2.7 K/mcL (0.6-4.6); Lymphocytes % 19.1 %; Mean Corpuscular HGB Conc 33.4 g/dL (31.6-35.5); Mean Corpuscular Hemoglobin 28.3 pg (28.0-33.3); Mean Corpuscular Volume 84.7 fL (83.0-100.0); Monocytes # 1.1 K/mcL (0.0-1.3); Monocytes % 7.8 %; Neutrophils # 9.9 K/mcL (1.6-8.9); Platelet Count 222 K/mcL (140-400); Red Blood Count 4.63 M/mcL (4.19-5.50); Red Cell Distribution Width 12.8 % (11.5-14.5); Segmented Neutrophils % 71.2 %
[2016-12-26 04:25] LABS: INR 1.7; Prothrombin Time 18.3 Seconds (9.4-12.1)
[2016-12-26 04:28] LABS: Activated Partial Thrombo Time 35.4 Seconds (26.0-36.0)
[2016-12-26 04:33] LABS: Alanine Aminotransferase 48 Units/L (0-55); Albumin 3.4 g/dL (3.5-5.0); Albumin/Globulin Ratio 1.1 (1.1-2.2); Alkaline Phosphatase 74 Units/L (38-126); Aspartate Amino Transferase 36 Units/L (5-34); BUN/Creatinine Ratio 17 (6-26); Bilirubin,Total 0.6 mg/dL (0.2-1.2); Blood Urea Nitrogen 13 mg/dL (8-26); Calcium 8.6 mg/dL (8.6-10.8); Carbon Dioxide 20 mEq/L (19-29); Chloride 107 mEq/L (98-109); Glucose 108 mg/dL (70-99); Magnesium 1.9 mg/dL (1.6-2.6); Osmolality,Calculated 289 (280-300); Sodium 139 mEq/L (136-145); Total Protein 6.4 g/dL (6.0-8.3); eGFR For African Americans > 60 (> 60); eGFR For Non-African Americans > 60 (> 60)
[2016-12-26 04:36] LABS: Phosphorous 2.6 mg/dL (2.3-4.7)
[2016-12-26] MEDS ORDERED: Ondansetron 4 MG/2 ML VIAL IM ONE (05:05)
[2016-12-26] MEDS ORDERED: Ondansetron 4 MG/2 ML VIAL IVP ONE (05:22)
[2016-12-26] MEDS ORDERED: Famotidine 20 MG/2 ML VIAL IVP SCH (06:00)
[2016-12-26] MEDS: *HR* Morphine 2 MG/ML SYRINGE IVP PRN ×2 (07:05→09:10)
[2016-12-26 07:26] VITALS: BP 121/94
--- NOTE | 2016-12-26 09:28 | Event Note ---
Date of Encounter: 12/26/16 Time of Encounter: 09:28
--- NOTE | 2016-12-26 09:51 | Electrocardiograph Report ---
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
--- NOTE | 2016-12-26 09:51 | Electrocardiograph Report ---
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
--- NOTE | 2016-12-26 17:16 | Electrocardiograph Report ---
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
== END 2016-12-26 11:32 | disposition left against medical advice (07) | DRG 198 ==
LOC: EMEROO 22:12 → 2NNU 12-26 01:46
PROVIDERS: ADMIT Internal Medicine; ATTEND Internal Medicine

== ENCOUNTER 2016-12-27 16:31 | Observation (INO) ==
[2016-12-27] MEDS ORDERED: 0.9 % Sodium Chloride 1,000 ML IVC ONE ×2 (16:48→18:52)
--- NOTE | 2016-12-27 16:51 | Emergency Department Note ---
Disposition Clinical Impression: Weakness, Elevated troponin, Subtherapeutic international normalized ratio (INR ), Substance abuse Disposition: Admitted As Inpatient Condition: Fair Time of Disposition: 19:14 General Adult HPI - General Chief complaint: ED Weakness Stated complaint: lethargic Time Seen by Provider: 12/27/16 16:48 Source: patient Mode of arrival: wheelchair Limitations: no limitations Nursing Notes Reviewed: Yes Vital Signs Reviewed: Yes - History of Present Illness HPI Narrative: 51-year-old male presented from triage in a wheelchair for concerns of "pain everywhere" and generalized weakness. Patient does not provide an accurate history. Patient states he does have pain everywhere but notes pain in the left chest. Notes nausea but no vomiting. Patient denies any diaphoresis or sweating. Patient's family at bedside states that he "coded" family at bedside states that he was unconscious and was not breathing. On Monday and was admitted to the hospitalist service but left AGAINST MEDICAL ADVICE Monday. 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 Patient does have a history of factor V Leiden. Patient has a history of peripheral vascular disease, cerebral aneurysm. Patient's last known well was on Monday per family at bedside and no history of stroke. Reports taking a percocet, but denies illicit substances. Pain Scale: 10 - Related Data Home Medications Medication Instructions Recorded Confirmed Atorvastatin [Lipitor] 40 mg PO DAILY 05/06/15 12/26/16 Magnesium Oxide [Magnesium] 400 mg PO DAILY 05/06/15 12/26/16 Pantoprazole Sodium [Protonix] 40 mg PO DAILY 05/06/15 12/26/16 [place] Oil/[place]-3 Fatty Acids 1,000 mg PO DAILY 05/06/15 12/26/16 [Fish Oil 500 mg Softgel] Albuterol Sulfate [Ventolin Hfa] 18 gm IH QID PRN 12/30/15 12/26/16 Cilostazol [Pletal] 100 mg PO BID 12/30/15 12/26/16 EPINEPHrine [Epipen] 0.3 mg IM QMONTH PRN 12/30/15 12/26/16 Fenofibrate Nanocrystallized 145 mg PO DAILY 12/30/15 12/26/16 [Tricor] Aspirin 81 mg PO DAILY 10/06/16 12/26/16 Carvedilol [Carvedilol] 3.125 mg PO BID 10/06/16 12/26/16 Cetirizine HCl [Zyrtec] 10 mg PO DAILY 10/06/16 12/26/16 Fluticasone Propionate Nasal 2 spray NS DAILY 10/06/16 12/26/16 [Flonase] Isosorbide MONOnitrate (24 HR) 30 mg PO DAILY 10/06/16 12/26/16 [Imdur] Lisinopril/Hydrochlorothiazide 1 each PO DAILY 10/06/16 12/26/16 [Zestoretic 20-25 mg Tablet] Tiotropium [place] [Spiriva 1 puff IH DAILY 10/06/16 12/26/16 Respimat] Tizanidine HCl 4 mg PO TID PRN 10/06/16 12/26/16 Warfarin [Coumadin] 7.5 mg PO SUTUWETHSA 10/06/16 12/26/16 hydroCHLOROthiazide 25 mg PO DAILY 10/06/16 12/26/16 [Hydrochlorothiazide] Gabapentin [Neurontin] 800 mg PO QID 12/26/16 12/26/16 Oxycodone HCl/Acetaminophen 1 tab PO Q6H PRN 12/26/16 12/26/16 [Percocet 7.5-325 mg Tablet] Warfarin [Coumadin] 5 mg PO MOFR 12/26/16 12/26/16 Allergies Allergy/AdvReac Type Severity Reaction Status Date / Time venom-honey bee Allergy Anaphylaxis Verified 12/25/16 22:14 [bee venom (honey bee)] All systems ED: reviewed and negative except as stated. Constitutional: Reports: as per HPI. Denies: fever Eyes: Reports: as per HPI ENT ED: Reports: as per HPI Cardiovascular: Reports: as per HPI, chest pain Respiratory: Reports: as per HPI. Denies: dyspnea Gastrointestinal: Reports: as per HPI, nausea. Denies: vomiting Genitourinary: Reports: as per HPI Musculoskeletal: Reports: as per HPI Integumentary: Reports: as per HPI Neurological: Reports: as per HPI, weakness Psychiatric: Reports: as per HPI Endocrine: Reports: as per HPI Hematological/Lymphatic: Reports: as per HPI Past Medical History - Past Medical History Medical history: Reports: arthritis, asthma, COPD, DVT, GERD, hyperlipidemia, hypertension, renal disease, TIA, other Surgical history: Reports: cholecystectomy, herniorrhaphy Psychiatric history: Reports: anxiety, depression - Social History Smoking Status: Current every day smoker Smokeless Tobacco Status: No Alcohol use: Reports: occasionally Drug use: Reports: other Physical Exam - General Limitations: no limitations General appearance: alert, in no apparent distress - Head Head exam: atraumatic, normocephalic, normal inspection - Eye Eye exam: Present: normal appearance, EOMI, conjunctival injection (OS) - ENT ENT exam: normal exam - Neck Neck exam: Present: normal inspection - Chest Chest inspection: Present: normal inspection - Respiratory Respiratory exam: Present: normal lung sounds bilaterally. Absent: respiratory distress - Cardiovascular Cardiovascular exam: Present: regular rate, normal rhythm - Abdominal Exam Abdominal exam: Present: soft, Non-Tender. Absent: distention, guarding, rebound - Extremities Exam Extremities exam: Present: normal inspection. Absent: pedal edema - Back Exam Back exam: Present: normal inspection - Neurological Exam Neurological exam: Present: alert, CN II-XII intact - Skin Skin exam: Present: warm, dry, intact, normal color Course Course Narrative: Patient seen and examined. Patient records reviewed. Patient presented on Monday for altered mental status. Patient was noted to have a lactic acidosis with an elevated troponin. Patient had a cardiology evaluation which showed likely demand ischemia. Patient had minimal CAD for left heart catheter in 2016. Patient also had a VQ scan which showed low probability of pulmonary embolism. Patient will receive a similar evaluation with laboratory, chest x- ray, EKG as well as head CT. Patient will be treated IV fluid hydration. Patient also have urinalysis as well as a urine tox. Disposition admission. Patient's bedside glucose was 211. - Reevaluation(s) Reevaluation #1: Patient's resting comfortably. Patient is noted have an elevated troponin which is trending downward from his prior evaluations. Patient's EKG shows no acute ST changes. Patient does have mild lactic acidosis. Time: 17:57 Reevaluation #2: Patient seen and examined. Patient's in no acute distress. Patient is alert and oriented. Patient will be admitted for observation. Time: 18:47 Reevaluation #3: Patient's resting comfortably. No acute distress. Time: 19:17 Vital Signs Temperature 99.0 F 12/27/16 16:32 Pulse Rate 84 12/27/16 16:32 Respiratory Rate 14 12/27/16 16:32 Blood Pressure 150/77 12/27/16 16:32 O2 Sat by Pulse Oximetry 94 12/27/16 16:32 Temperature 99.0 F 12/27/16 16:32 Pulse Rate 75 12/27/16 19:23 Respiratory Rate 18 12/27/16 19:23 Blood Pressure 116/76 12/27/16 19:23 O2 Sat by Pulse Oximetry 96 12/27/16 19:23 Oxygen Delivery Oxygen Delivery Room Air Medical Decision Making - MDM Narrative Medical decision making narrative: 51-year-old male patients for evaluation of generalized weakness and "pain everywhere". Patient arrived appearing lethargic and weak. Much of the history provided by the significant other at bedside. States the patient was recently hospitalized on Monday and then left. Patient states that he thought his workup was over and walked out the door. Patients states that he has pain everywhere. Patient also noted some chest pain. Patient had a cardiac evaluation including EKG and troponin. Patient's troponin was elevated but has been trending down since it peaked 2 days ago. Patient EKG shows no acute ST elevation. Patient labs show mildly elevated CK. Patient does have evidence of substance abuse in his urine. Patient denies any methamphetamines. Patient does admit to taking Percocet. The patient was treated with Toradol as well as Zofran and IV fluids. Patient had a head CT which showed a known saccular aneurysm but no evidence of stroke. Patient also had a chest x-ray which showed no acute abnormalities. Patient's recent hospitalization included a cardiology as well as pulmonology consult. Patient had a VQ scan at that time that showed low evidence of pulmonary embolism. Patient's cardiology evaluation showed likely demand ischemia. Patient was given an aspirin in the emergency department given his symptoms and elevated troponin. Patient's abdominal exam is not concerning with no signs of peritonitis. No reason to pursue any imaging. Hospitalist recommended a repeat echo which was ordered from the emergency department. - Medical Records Medical records reviewed: Yes I reviewed the patient's medical records. Patient had a left heart catheter with minimal CAD in 2016. Patient had an echo at that time showed EF of 65%. - Lab Data Lab results reviewed: Yes I reviewed the patient's lab results. Result diagrams: 12/27/16 16:52 12/27/16 16:52 Lab Results 12/27/16 12/27/16 12/27/16 Range/Units 16:52 16:52 16:52 WBC 8.9 (4.3-11.1) K/mcL RBC 4.56 (4.19-5.50) M/mcL Hgb 13.2 (12.9-16.9) g/dL Hct 39.7 (37.5-50.1) % MCV 87.1 (83.0-100.0) fL MCH 28.9 (28.0-33.3) pg MCHC 33.2 (31.6-35.5) g/dL RDW 13.3 (11.5-14.5) % Plt Count 215 (140-400) K/mcL MPV 9.8 (9.4-12.4) fL Immature Gran % 0.6 (0-4) % Seg Neutrophils % 56.4 % Lymphocytes % 26.1 % Monocytes % 7.8 % Eosinophils % 8.2 % Basophils % 0.9 % Neutrophils # 5.0 (1.6-8.9) K/mcL Lymphocytes # 2.3 (0.6-4.6) K/mcL Monocytes # 0.7 (0.0-1.3) K/mcL Eosinophils # 0.7 H (0.0-0.6) K/mcL Basophils # 0.1 (0.0-0.2) K/mcL PT 16.0 H (9.4-12.1) Seconds INR 1.5 Sodium 140 (136-145) mEq/L Potassium 3.8 (3.5-4.5) mEq/L Chloride 104 (98-109) mEq/L Carbon Dioxide 28 (19-29) mEq/L BUN 11 (8-26) mg/dL Creatinine 0.92 (0.72-1.25) mg/dL Est GFR ( Amer) > 60 (> 60) Est GFR (Non-Af Amer) > 60 (> 60) BUN/Creatinine Ratio 12 (6-26) Glucose 177 H (70-99) mg/dL Calculated Osmolality 294 (280-300) Lactic Acid (0.5-2.2) mmol/L Calcium 9.0 (8.6-10.8) mg/dL Ionized Calcium 1.08 L (1.15-1.35) mmol/L Phosphorus 2.9 (2.3-4.7) mg/dL Magnesium 1.3 L (1.6-2.6) mg/dL Total Bilirubin 0.4 (0.2-1.2) mg/dL AST 42 H (5-34) Units/L ALT 47 (0-55) Units/L Alkaline Phosphatase 88 (38-126) Units/L Creatine Kinase 927 H (30-200) Units/L Troponin I (0-0.03) ng/mL Serum Total Protein 6.5 (6.0-8.3) g/dL Albumin 3.3 L (3.5-5.0) g/dL Globulin 3.2 (2.4-3.5) g/dL Albumin/Globulin Ratio 1.0 L (1.1-2.2) Urine Color (Yellow) Urine Clarity (Clear) Urine pH (5.0-8.0) pH Units Ur Specific [place] (1.010-1.025) Urine Protein (Neg-Trace) mg/dL Urine Glucose (UA) (Normal) mg/dL Urine Ketones (Negative) mg/dL Urine Blood (Negative) Urine Nitrite (Negative) Urine Bilirubin (Negative) Urine Urobilinogen (Normal) mg/dL Ur Leukocyte Esterase (Negative) Ur Culture Indicated? (NO) Urine Opiates Screen (Jkbsni=734) ng/mL Ur Barbiturates Screen (Vuwnqh=605) ng/mL Ur Phencyclidine Scrn (Cutoff=25) ng/mL Ur Amphetamines Screen (Uvdjro=0597) ng/mL U Benzodiazepines Scrn (Sjanbk=977) ng/mL Urine Cocaine Screen (Cutoff= 300) ng/mL U Marijuana (THC) Screen (Cutoff = 50) ng/mL 12/27/16 12/27/16 12/27/16 Range/Units 16:52 16:52 17:15 WBC (4.3-11.1) K/mcL RBC (4.19-5.50) M/mcL Hgb (12.9-16.9) g/dL Hct (37.5-50.1) % MCV (83.0-100.0) fL MCH (28.0-33.3) pg MCHC (31.6-35.5) g/dL RDW (11.5-14.5) % Plt Count (140-400) K/mcL MPV (9.4-12.4) fL Immature Gran % (0-4) % Seg Neutrophils % % Lymphocytes % % Monocytes % % Eosinophils % % Basophils % % Neutrophils # (1.6-8.9) K/mcL Lymphocytes # (0.6-4.6) K/mcL Monocytes # (0.0-1.3) K/mcL Eosinophils # (0.0-0.6) K/mcL Basophils # (0.0-0.2) K/mcL PT (9.4-12.1) Seconds INR Sodium (136-145) mEq/L Potassium (3.5-4.5) mEq/L Chloride (98-109) mEq/L Carbon Dioxide (19-29) mEq/L BUN (8-26) mg/dL Creatinine (0.72-1.25) mg/dL Est GFR ( Amer) (> 60) Est GFR (Non-Af Amer) (> 60) BUN/Creatinine Ratio (6-26) Glucose (70-99) mg/dL Calculated Osmolality (280-300) Lactic Acid 2.3 H (0.5-2.2) mmol/L Calcium (8.6-10.8) mg/dL Ionized Calcium (1.15-1.35) mmol/L Phosphorus (2.3-4.7) mg/dL Magnesium (1.6-2.6) mg/dL Total Bilirubin (0.2-1.2) mg/dL AST (5-34) Units/L ALT (0-55) Units/L Alkaline Phosphatase (38-126) Units/L Creatine Kinase (30-200) Units/L Troponin I 0.48 H* (0-0.03) ng/mL Serum Total Protein (6.0-8.3) g/dL Albumin (3.5-5.0) g/dL Globulin (2.4-3.5) g/dL Albumin/Globulin Ratio (1.1-2.2) Urine Color Yellow (Yellow) Urine Clarity Clear (Clear) Urine pH 6.5 (5.0-8.0) pH Units Ur Specific [place] 1.018 (1.010-1.025) Urine Protein Negative (Neg-Trace) mg/dL Urine Glucose (UA) Normal (Normal) mg/dL Urine Ketones Negative (Negative) mg/dL Urine Blood Negative (Negative) Urine Nitrite Negative (Negative) Urine Bilirubin Negative (Negative) Urine Urobilinogen Normal (Normal) mg/dL Ur Leukocyte Esterase Negative (Negative) Ur Culture Indicated? NO (NO) Urine Opiates Screen (Ecjlnc=923) ng/mL Ur Barbiturates Screen (Gcivcr=887) ng/mL Ur Phencyclidine Scrn (Cutoff=25) ng/mL Ur Amphetamines Screen (Mjcvxa=0241) ng/mL U Benzodiazepines Scrn ([place]=673) ng/mL Urine Cocaine Screen (Cutoff= 300) ng/mL U Marijuana (THC) Screen (Cutoff = 50) ng/mL 12/27/16 Range/Units 17:15 WBC (4.3-11.1) K/mcL RBC (4.19-5.50) M/mcL Hgb (12.9-16.9) g/dL Hct (37.5-50.1) % MCV (83.0-100.0) fL MCH (28.0-33.3) pg MCHC (31.6-35.5) g/dL RDW (11.5-14.5) % Plt Count (140-400) K/mcL MPV (9.4-12.4) fL Immature Gran % (0-4) % Seg Neutrophils % % Lymphocytes % % Monocytes % % Eosinophils % % Basophils % % Neutrophils # (1.6-8.9) K/mcL Lymphocytes # (0.6-4.6) K/mcL Monocytes # (0.0-1.3) K/mcL Eosinophils # (0.0-0.6) K/mcL Basophils # (0.0-0.2) K/mcL PT (9.4-12.1) Seconds INR Sodium (136-145) mEq/L Potassium (3.5-4.5) mEq/L Chloride (98-109) mEq/L Carbon Dioxide (19-29) mEq/L BUN (8-26) mg/dL Creatinine (0.72-1.25) mg/dL Est GFR ( Amer) (> 60) Est GFR (Non-Af Amer) (> 60) BUN/Creatinine Ratio (6-26) Glucose (70-99) mg/dL Calculated Osmolality (280-300) Lactic Acid (0.5-2.2) mmol/L Calcium (8.6-10.8) mg/dL Ionized Calcium (1.15-1.35) mmol/L Phosphorus (2.3-4.7) mg/dL Magnesium (1.6-2.6) mg/dL Total Bilirubin (0.2-1.2) mg/dL AST (5-34) Units/L ALT (0-55) Units/L Alkaline Phosphatase (38-126) Units/L Creatine Kinase (30-200) Units/L Troponin I (0-0.03) ng/mL Serum Total Protein (6.0-8.3) g/dL Albumin (3.5-5.0) g/dL Globulin (2.4-3.5) g/dL Albumin/Globulin Ratio (1.1-2.2) Urine Color (Yellow) Urine Clarity (Clear) Urine pH (5.0-8.0) pH Units Ur Specific [place] (1.010-1.025) Urine Protein (Neg-Trace) mg/dL Urine Glucose (UA) (Normal) mg/dL Urine Ketones (Negative) mg/dL Urine Blood (Negative) Urine Nitrite (Negative) Urine Bilirubin (Negative) Urine Urobilinogen (Normal) mg/dL Ur Leukocyte Esterase (Negative) Ur Culture Indicated? (NO) Urine Opiates Screen Positive H (Cwbmps=195) ng/mL Ur Barbiturates Screen Negative (Uwhzbz=188) ng/mL Ur Phencyclidine Scrn Negative (Cutoff=25) ng/mL Ur Amphetamines Screen Positive H (Ipwfnu=0188) ng/mL U Benzodiazepines Scrn Negative (Ckqfrq=795) ng/mL Urine Cocaine Screen Negative (Cutoff= 300) ng/mL U Marijuana (THC) Screen Negative (Cutoff = 50) ng/mL - Radiology Data Radiology results reviewed: Yes I reviewed the patient's radiology results. Chest X-Ray 12/27/16 16:48 IMPRESSION: 1. Blunting of the right costophrenic angle possibly due to a small amount of pleural fluid. 2. Otherwise, no convincing acute cardiopulmonary abnormality. D/ / Earle Marie MD / Earle Maire MD Interpreting Provider: Earle Marie MD Head CT 12/27/16 16:49 IMPRESSION: 1. No acute intracranial abnormality. Known saccular aneurysm along the lateral portion of the left cavernous internal carotid artery seen on prior MRA is not adequately seen on this noncontrast CT. D/ / 12/27/2016 18:14:59 Tk Webster MD / leslie Interpreting Provider: Tk Webster MD - EKG Data EKG #1 EKG attestation: Yes I reviewed and interpreted this EKG. EKG shows normal: sinus rhythm Rate: normal Rhythm: NSR [place]/QRS: RBBB Q waves: III T wave inversions noted in: aVR, v1 Interpretation: no acute changes, unchanged when compared to prior tracing (date ), nonspecific ST-T wave changes S.B.A.R. - S.B.A.RSandy Situation: Demographics Background: Presenting Complaint Assessment: Vital Signs, Course and respsone to treatment Recommendation: Barrier(s) to disposition, Recommendation based on pending studies, treatments, or consults S.B.A.RSandy Report Given to: Dr. Mary RamosBSandyALady Repor Time: 19:02 Attestation Statement - Attestation Attestation: I, Luther Zuñiga DO, examined this patient [id number] and my medical decision-making was reviewed with Dr. Royal PGY - 3. Resident Physician. I agree with the documented findings, disposition and treatment plan as described except to the extent set forth below. Please see my progress notes for details. 51-year-old male presents to emergency room with complaint of chest pain. He was seen and admitted several days ago for cardiac related symptoms. Patient found to have an elevated troponin of the time scheduled a cardiac evaluation. Patient left AGAINST MEDICAL ADVICE. Labs reviewed from previous evaluation showing multi-substance in his urine as well as elevated troponin white blood cell count. Patient presents with similar complaint initiated this time based on reviewing the chart and evaluation. Repeat labs ordered at this time. Patient found downtrending troponin otherwise his labs are relatively unremarkable. To previous EKGs as well as one from today were reviewed showing stable sinus rhythm and no acute signs of abnormality no morphology issues and no interval changes at this point. Patient to be admitted for continuation of his cardiac evaluation. Patient provided with doses of Toradol aspirin and Tylenol here for symptom control. He denies any specific chest pain or discomfort at this point. He has generalized malaise and muscle aches. Labs reviewed with the hospitalist admission process completed. See documentation of the consultation as well as admission process and the resident physician's note.
[2016-12-27 17:04] LABS: Basophils # 0.1 K/mcL (0.0-0.2); Basophils % 0.9 %; Eosinophils # 0.7 K/mcL (0.0-0.6); Eosinophils % 8.2 %; Hematocrit 39.7 % (37.5-50.1); Hemoglobin 13.2 g/dL (12.9-16.9); Immature Granulocytes % 0.6 % (0-4); Lymphocytes # 2.3 K/mcL (0.6-4.6); Lymphocytes % 26.1 %; Mean Corpuscular HGB Conc 33.2 g/dL (31.6-35.5); Mean Corpuscular Hemoglobin 28.9 pg (28.0-33.3); Mean Corpuscular Volume 87.1 fL (83.0-100.0); Mean Platelet Volume 9.8 fL (9.4-12.4); Monocytes # 0.7 K/mcL (0.0-1.3); Monocytes % 7.8 %; Platelet Count 215 K/mcL (140-400); Red Blood Count 4.56 M/mcL (4.19-5.50); Red Cell Distribution Width 13.3 % (11.5-14.5); Segmented Neutrophils % 56.4 %
[2016-12-27 17:07] LABS: INR 1.5
[2016-12-27] MEDS ORDERED: Ondansetron 4 MG/2 ML VIAL IVP ONE (17:13)
[2016-12-27 17:20] LABS: Alanine Aminotransferase 47 Units/L (0-55); Albumin 3.3 g/dL (3.5-5.0); Alkaline Phosphatase 88 Units/L (38-126); Aspartate Amino Transferase 42 Units/L (5-34); BUN/Creatinine Ratio 12 (6-26); Bilirubin,Total 0.4 mg/dL (0.2-1.2); Blood Urea Nitrogen 11 mg/dL (8-26); Carbon Dioxide 28 mEq/L (19-29); Chloride 104 mEq/L (98-109); Globulin 3.2 g/dL (2.4-3.5); Glucose 177 mg/dL (70-99); Magnesium 1.3 mg/dL (1.6-2.6); Osmolality,Calculated 294 (280-300); Phosphorous 2.9 mg/dL (2.3-4.7); Potassium 3.8 mEq/L (3.5-4.5); Sodium 140 mEq/L (136-145); Total Protein 6.5 g/dL (6.0-8.3); eGFR For African Americans > 60 (> 60); eGFR For Non-African Americans > 60 (> 60)
[2016-12-27 17:43] LABS: Bilirubin,Urine Negative (Negative); Blood,Urine Negative (Negative); Clarity,Urine Clear (Clear); Color,Urine Yellow (Yellow); Glucose,Urine (UA) Normal (Normal); Ketones,Urine Negative (Negative); Leukocyte Esterase,Urine Negative (Negative); Nitrite,Urine Negative (Negative); PH,Urine 6.5 pH Units (5.0-8.0); Protein,Urine Negative (Neg-Trace); Specific Gravity,Urine 1.018 (1.010-1.025); Urobilinogen,Urine Normal (Normal)
[2016-12-27 17:47] LABS: Amphetamine Screen,Urine Positive ng/mL (Cutoff=1000); Barbiturate Screen,Urine Negative ng/mL (Cutoff=200); Benzodiazepines Screen,Urine Negative ng/mL (Cutoff=200); Cannabinoid Screen,Urine Negative ng/mL (Cutoff = 50); Cocaine Screen,Urine Negative ng/mL (Cutoff= 300); Opiate Screen,Urine Positive ng/mL (Cutoff=300); Phencyclidine Screen,Urine Negative ng/mL (Cutoff=25)
[2016-12-27] MEDS ORDERED: Ketorolac 15 MG/ML VIAL IVP ONE (18:03)
[2016-12-27 18:07] LABS: Ionized Calcium 1.08 mmol/L (1.15-1.35)
[2016-12-27 18:20] LABS: Creatine Kinase 927 Units/L (30-200)
[2016-12-27] MEDS: Aspirin 81 MG TAB.CHEW PO ONE (19:37)
[2016-12-27] MEDS ORDERED: Naloxone 0.4 MG/ML INJ IVP PRN (22:16)
[2016-12-27] MEDS ORDERED: Ondansetron 4 MG/2 ML VIAL IVP PRN (22:16)
[2016-12-27] MEDS ORDERED: Acetaminophen 325 MG TABLET PO PRN (22:16)
[2016-12-27] MEDS ORDERED: tiZANidine 4 MG TABLET PO PRN (22:20)
[2016-12-27] MEDS ORDERED: Dextrose Gel 15 GM PO PRN ×2 (22:29)
[2016-12-27] MEDS ORDERED: D5% in Water 1,000 ML IVC PRN (22:29)
[2016-12-27] MEDS ORDERED: *HR* Dextrose 50 % in Water (Syg) 50 ML SYRINGE IVP PRN (22:29)
[2016-12-27] MEDS ORDERED: *HR* LORazepam 0.5 MG TABLET PO ONE (22:39)
[2016-12-27] MEDS ORDERED: *HR* LORazepam 2 MG/ML VIAL IVP PRN (22:40)
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
[2016-12-27] MEDS: Nicotine 14 MG PATCH.TD24 TD SCH (23:11)
[2016-12-27] MEDS: Pantoprazole 40 MG VIAL IVP SCH (23:11)
[2016-12-27] MEDS: *HR* OxyCODONE/APAP 7.5/325 TABLET PO PRN (23:11)
[2016-12-27] MEDS: 0.9 % Sodium Chloride 1,000 ML IVC SCH (23:13)
[2016-12-27] MEDS ORDERED: *HR* Warfarin 7.5 MG TABLET PO ONE (23:45)
[2016-12-27] MEDS: Ipratropium/Albuterol Neb 3 ML IH SCH (23:49)
[2016-12-28 01:28] LABS: Basophils # 0.1 K/mcL (0.0-0.2); Basophils % 0.9 %; Eosinophils # 0.7 K/mcL (0.0-0.6); Eosinophils % 8.1 %; Hematocrit 34.9 % (37.5-50.1); Immature Granulocytes % 0.3 % (0-4); Lymphocytes # 3.5 K/mcL (0.6-4.6); Lymphocytes % 40.2 %; Mean Corpuscular HGB Conc 33.2 g/dL (31.6-35.5); Mean Corpuscular Hemoglobin 29.1 pg (28.0-33.3); Mean Corpuscular Volume 87.7 fL (83.0-100.0); Mean Platelet Volume 10.1 fL (9.4-12.4); Monocytes # 0.6 K/mcL (0.0-1.3); Monocytes % 6.3 %; Neutrophils # 3.9 K/mcL (1.6-8.9); Platelet Count 172 K/mcL (140-400); Red Blood Count 3.98 M/mcL (4.19-5.50); Red Cell Distribution Width 13.4 % (11.5-14.5); Segmented Neutrophils % 44.2 %
[2016-12-28 01:31] LABS: Hemoglobin 11.6 g/dL (12.9-16.9)
[2016-12-28 01:34] LABS: INR 1.7
[2016-12-28 01:47] LABS: Albumin 3.1 g/dL (3.5-5.0); Albumin/Globulin Ratio 1.2 (1.1-2.2); Bilirubin,Direct 0.1 mg/dL (0.0-0.5); Bilirubin,Indirect 0.2 mg/dL (0.0-1.2); Bilirubin,Total 0.3 mg/dL (0.2-1.2); Globulin 2.6 g/dL (2.4-3.5); Total Protein 5.7 g/dL (6.0-8.3)
[2016-12-28 01:48] LABS: BUN/Creatinine Ratio 14 (6-26); Blood Urea Nitrogen 13 mg/dL (8-26); Calcium 8.3 mg/dL (8.6-10.8); Carbon Dioxide 28 mEq/L (19-29); Chloride 110 mEq/L (98-109); Chol/HDL Ratio 5.8 (0-4.9); Cholesterol 198 mg/dL (< 200); Glucose 95 mg/dL (70-99); HDL Cholesterol 34 mg/dL (40-59); LDL Cholesterol,Calculated 86 mg/dL (0-99); Magnesium 1.5 mg/dL (1.6-2.6); Osmolality,Calculated 298 (280-300); Potassium 4.2 mEq/L (3.5-4.5); Sodium 144 mEq/L (136-145); Triglycerides 388 mg/dL (< 150); eGFR For African Americans > 60 (> 60); eGFR For Non-African Americans > 60 (> 60)
[2016-12-28] MEDS: Ipratropium/Albuterol Neb 3 ML IH SCH ×2 (03:46→07:32)
[2016-12-28] MEDS: Pantoprazole 40 MG VIAL IVP SCH (05:44)
[2016-12-28] MEDS: *HR* OxyCODONE/APAP 7.5/325 TABLET PO PRN ×3 (06:38→22:01)
[2016-12-28] MEDS: Insulin LISPRO 300 UNITS/3 ML VIAL SQ SCH ×3 (09:33→17:30)
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
[2016-12-28] MEDS: Loratadine 10 MG TABLET PO SCH (09:38)
[2016-12-28] MEDS: Magnesium Oxide 400 MG TABLET PO SCH (09:38)
[2016-12-28] MEDS: Aspirin 81 MG TAB.CHEW PO SCH (09:38)
[2016-12-28] MEDS: Fenofibrate 54 MG TABLET PO SCH (09:38)
[2016-12-28] MEDS: Nicotine 14 MG PATCH.TD24 TD SCH (09:39)
[2016-12-28] MEDS: Isosorbide MONOnitrate (24 HR) 30 MG TAB.ER.24H PO SCH (09:39)
[2016-12-28] MEDS: Gabapentin 400 MG CAPSULE PO SCH ×4 (09:39→22:01)
[2016-12-28] MEDS: Fluticasone Propionate Nasal 50 MCG/SPRAY BOTTLE NS SCH (09:44)
[2016-12-28] MEDS ORDERED: *HR* Heparin 5,000 UNIT/ML VIAL IVP ONE (10:59)
[2016-12-28] MEDS ORDERED: *HR* Heparin 5,000 UNIT/ML VIAL IVP PRN ×4 (10:59→14:35)
[2016-12-28] MEDS ORDERED: Heparin 25,000 UNIT/500 ML D5W 25,000 UNIT/500 ML MLS IVC SCH (11:00)
[2016-12-28] MEDS ORDERED: Ipratropium/Albuterol Neb 3 ML IH PRN (11:01)
[2016-12-28] MEDS ORDERED: Magnesium Sulfate 1 GM in D5% in Water 100 ML IVPB ONE (11:57)
--- NOTE | 2016-12-28 13:56 | Cardiology Consult Note ---
Date of Encounter: 12/28/16 Time of Encounter: 13:55 Assessment and Plan (1) Demand ischemia Current Visit: No Status: Acute Elevated troponin--peaked at 1.73 12/26. Currently 0.48, 0.55, 0.52. Initially on 12/26 EKG changes in the inferiolateral leads on presentation that resolved on repeat EKG. Likely demand ischemia in the setting of overdose leading to severe hypotension and tachycardia, now with stable vitals. LHC 05/2015 showed luminal irregularities with no obstructing lesions. TTE shows preserved EF with normal wall motion. No further cardiac testing warranted. Cardiology signing off. Reconsult PRN. Discussion w patient/family: The assessment and plan as outlined above was discussed with the patient and/or family members who expressed understanding and agreement. All questions were answered. Thank you for involving us in the care of your patient. Please call with any questions. I will discuss all the above with Dr. Mendoza and make changes as necessary. History of Present Illness Consult date: 12/28/16 Requesting physician: Justyna Holt Consult reason: Elevated troponin Chief complaint: None History of present illness: Mr. Nelson is a 51 year old male with a history of DVT, factor V Leiden on coumadin, untreated ASHLIE, COPD, HTN, HLD, PVD, renal insufficiency, TIA, and saccular aneurysm who initially presented from home on 12/26/16 after he was witnessed to have a decreased level of consciousness that was associated with foaming at the mouth. He was reported to have tremors and he turned blue. The patient and his was concerned that he was poisoned by a neighbor who was upset with him. He reports that the neighbor has known drug problems. A drug screen was found to be positive for opiates and amphetamines. He denies drug use. Cardiology was consulted 12/26 for elevated troponin up to 1.73. He was also found to have a lactic acid at 10.7. His blood pressure was as low as 68/ 59 and HR was 140's. He was given IV fluid resuscitation and blood pressure improved. It was recommended that he have an echo completed and he ended up leaving against medical advice. He represented 12/27 to be admitted again to finish his workup. Troponins are fluctuating, but downtrending--0.48, 0.55, 0.52. Echo completed shows EF 65%, moderate LVDD, mild-moderate MR. He denies chest pain or dyspnea. Previous cardiac testing: [facility] 05/2015- Luminal irregularities. No obstructing lesions. EF 70%. 2014-Dobutamine stress echo- ST changes noted in inferiolateral leads during peak heart rate. No echocardiographic evidence of ischemia. Past Med Surg Social Fam HX - Past Medical History Medical history: arthritis, asthma, COPD, DVT, GERD, hyperlipidemia, hypertension, renal disease, TIA, other Psychiatric history: anxiety, depression - Past Surgical History Surgical History: cholecystectomy, herniorrhaphy - Social History Smoking Status: Current every day smoker Smokeless Tobacco Status: No Alcohol use: occasionally Drug use: opiates (Patient takes Percocet), methamphetamine - Family History Father Race: Family Member Ethnicity: Non- Living Status: Age at : 62 Cause of : HD Hx Family Cardiac Disorders: Yes (HD, HTN) Hx Family Endocrine Disorder: Yes (DM) Sister Race: Family Member Ethnicity: Non- Living Status: Age at : 43 Cause of : Lung cancer with mets to liver Hx Family Cancer: Yes (Lung/Liver) Mother Adopted: No Race: Family Member Ethnicity: Non- Living Status: Still Living Hx Family Cardiac Disorders: No Hx Family Respiratory Disorders: No Hx Family Cancer: No Hx Family GI Disorders: No Hx Family Genitourinary Disorders: Yes (Gout) Hx Family Endocrine Disorder: No Hx Family Neuromuscular Disorders: No Hx Family Neurologic Disorders: No Hx Family HEENT Disorders: No Hx Family Autoimmune Disorders: Yes (factor 5) Medications and Allergies Atorvastatin [Lipitor] 40 mg PO DAILY 05/06/15 [History] Magnesium Oxide [Magnesium] 400 mg PO DAILY 05/06/15 [History] Pantoprazole Sodium [Protonix] 40 mg PO DAILY 05/06/15 [History] [place]-3 Fatty Acids [Fish Oil 500 mg Softgel] 1,000 mg PO DAILY 05/06 [History] Albuterol Sulfate [Ventolin Hfa] 18 gm IH QID PRN 12/30/15 [History] Cilostazol [Pletal] 100 mg PO BID 12/30/15 [History] EPINEPHrine [Epipen] 0.3 mg IM QMONTH PRN 12/30/15 [History] Fenofibrate Nanocrystallized [Tricor] 145 mg PO DAILY 12/30/15 [History] Aspirin 81 mg PO DAILY 10/06/16 [History] Carvedilol [Carvedilol] 3.125 mg PO BID 10/06/16 [History] Cetirizine HCl [Zyrtec] 10 mg PO DAILY 10/06/16 [History] Fluticasone Propionate Nasal [Flonase] 2 spray NS DAILY 10/06/16 [History] Isosorbide MONOnitrate (24 HR) [Imdur] 30 mg PO DAILY 10/06/16 [History] Lisinopril/Hydrochlorothiazide [Zestoretic 20-25 mg Tablet] 1 each PO DAILY 12/15 [History] Tiotropium [place] [Spiriva Respimat] 1 puff IH DAILY 10/06/16 [History] Tizanidine HCl 4 mg PO TID PRN 10/06/16 [History] Warfarin [Coumadin] 7.5 mg PO SUTUWETHSA 10/06/16 [History] Gabapentin [Neurontin] 800 mg PO QID 12/26/16 [History] Oxycodone HCl/Acetaminophen [Percocet 7.5-325 mg Tablet] 1 tab PO Q6H PRN [History] Warfarin [Coumadin] 5 mg PO MOFR 12/26/16 [History] 3 Allergy/AdvReac Type Severity Reaction Status Date / Time venom-honey bee Allergy Anaphylaxis Verified 12/25/16 22:14 [bee venom (honey bee)] All Systems Review: A 10-system review of systems was performed and is negative for pertinent findings except as documented above in the HPI. Physical Examination Vital Signs, Last 4 Hours Temp Pulse Resp BP Pulse Ox 12/28/16 11:37 97.6 F 74 17 144/81 97 Vital Signs Temp Pulse Resp BP Pulse Ox 12/28/16 11:37 97.6 F 74 17 144/81 97 12/28/16 09:30 97.6 F 67 16 153/83 96 12/28/16 07:32 20 96 12/28/16 03:55 97.4 F L 78 18 131/78 95 12/28/16 00:12 97.7 F 64 19 109/56 94 12/27/16 22:39 98 12/27/16 21:04 97.9 F 66 18 144/70 97 12/27/16 19:39 20 116/76 12/27/16 19:23 75 18 116/76 96 12/27/16 18:12 71 20 126/73 99 12/27/16 17:27 76 17 124/79 98 12/27/16 16:49 99 12/27/16 16:32 99.0 F 84 14 150/77 94 Intake and Output 12/27/16 12/28/16 12/28/16 23:59 07:59 15:59 Intake Total 1000 / 1000 120 / 120 Output Total 100 / 100 Balance 1000 / 1000 -100 / -100 120 / 120 Intake: IV Fluids 1000 / 1000 0.9 % Sodium Chloride 1, 1000 / 1000 000 ML @ 3750 mls/hr IVC .Q16M ONE Rx#:[id number] Oral 120 / 120 Output: Urine 100 / 100 Other: Meal Breakfast Percent of Meal Consumed 45% Weight 89.811 kg 87.2 kg Blood Glucose* 211 105 Patient Weight 12/28/16 23:59 Weight 87.2 kg General: Conversant, No Apparent Distress HEENT: Atraumatic, Normocephaly, Mucus Membranes Moist Neck: No JVD, Normal carotid pulses Cardiac: Reg Rate and Rhythm, Normal S1 and S2, No Murmur Lungs: Normal Breath Sounds, No Wheeze, Rales, Rhonchi Neuro: Alert and responsive, No focal deficits noted Abdomen: Soft, Non-Tender Skin: No rashes noted on visualized skin Musculoskeletal: No Chest Wall Tenderness Extremities: No Clubbing, No Cyanosis, No Edema, Normal Pulses Results 12/28/16 01:09 12/28/16 01:09 Lab Results 12/28/16 12/28/16 12/28/16 01:09 01:09 01:09 WBC 8.7 Hgb 11.6 L D Hct 34.9 L Plt Count 172 INR 1.7 APTT 35.0 D-Dimer Sodium Potassium Chloride Carbon Dioxide BUN Creatinine Glucose Calcium Magnesium Total Bilirubin AST ALT Alkaline Phosphatase Troponin I 0.55 H* 12/28/16 12/28/16 12/28/16 01:09 01:09 01:09 WBC Hgb Hct Plt Count INR APTT D-Dimer 234 Sodium 144 Potassium 4.2 Chloride 110 H Carbon Dioxide 28 BUN 13 Creatinine 0.92 Glucose 95 Calcium 8.3 L Magnesium 1.5 L Total Bilirubin 0.3 AST 46 H ALT 48 Alkaline Phosphatase 79 Troponin I 12/28/16 05:40 WBC Hgb Hct Plt Count INR APTT D-Dimer Sodium Potassium Chloride Carbon Dioxide BUN Creatinine Glucose Calcium Magnesium Total Bilirubin AST ALT Alkaline Phosphatase Troponin I 0.52 H* Short CBC 12/28/16 12/27/16 Range/Units 01:09 16:52 WBC 8.7 8.9 (4.3-11.1) K/mcL Hgb 11.6 L D 13.2 (12.9-16.9) g/dL Hct 34.9 L 39.7 (37.5-50.1) % Plt Count 172 215 (140-400) K/mcL Neutrophils # 3.9 5.0 (1.6-8.9) K/mcL BMP 12/28/16 12/27/16 Range/Units 01:09 16:52 Sodium 144 140 (136-145) mEq/L Potassium 4.2 3.8 (3.5-4.5) mEq/L Chloride 110 H 104 (98-109) mEq/L Carbon Dioxide 28 28 (19-29) mEq/L BUN 13 11 (8-26) mg/dL Creatinine 0.92 0.92 (0.72-1.25) mg/dL Glucose 95 177 H (70-99) mg/dL Calcium 8.3 L 9.0 (8.6-10.8) mg/dL Cardiac Enzymes 12/28/16 12/28/16 12/27/16 Range/Units 05:40 01:09 16:52 Troponin I 0.52 H* 0.55 H* 0.48 H* (0-0.03) ng/mL Liver Function 12/28/16 12/27/16 Range/Units 01:09 16:52 Total Bilirubin 0.3 0.4 (0.2-1.2) mg/dL Direct Bilirubin 0.1 (0.0-0.5) mg/dL AST 46 H 42 H (5-34) Units/L ALT 48 47 (0-55) Units/L Alkaline Phosphatase 79 88 (38-126) Units/L Albumin 3.1 L 3.3 L (3.5-5.0) g/dL Urine 12/27/16 Range/Units 17:15 Urine Color Yellow (Yellow) Urine Clarity Clear (Clear) Urine pH 6.5 (5.0-8.0) pH Units Ur Specific [place] 1.018 (1.010-1.025) Urine Protein Negative (Neg-Trace) mg/dL Urine Glucose (UA) Normal (Normal) mg/dL Impressions Chest X-Ray 12/27/16 16:48 IMPRESSION: 1. Blunting of the right costophrenic angle possibly due to a small amount of pleural fluid. 2. Otherwise, no convincing acute cardiopulmonary abnormality. D/ / Earle Marie MD / Earle Marie MD Interpreting Provider: Earle Marie MD Head CT 12/27/16 16:49 IMPRESSION: 1. No acute intracranial abnormality. Known saccular aneurysm along the lateral portion of the left cavernous internal carotid artery seen on prior MRA is not adequately seen on this noncontrast CT. 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 D/ / David Rodriguez MD / David Rodriguez MD Interpreting Provider: David Rodriguez MD Chest CTA 12/28/16 01:27 IMPRESSION: No evidence of pulmonary embolism or acute pulmonary abnormality. D/ / Kaleigh Hay MD / Kaleigh Hay MD Interpreting Provider: Kaleigh Hay MD Active Medications Acetaminophen (Tylenol) 650 mg PO Q6HR PRN PRN Reason: Mild Pain (1-3) Stop: 06/28/17 22:17 Last Admin: 12/28/16 05:43 Dose: 650 mg Albuterol/Ipratropium (Duoneb) 3 ml IH [id number] PRN PRN Reason: Shortness Of Breath/Wheezing Stop: 06/29/17 00:01 Aspirin (Aspirin) 81 mg PO DAILY [facility] Stop: 06/29/17 09:01 Last Admin: 12/28/16 09:38 Dose: 81 mg Atorvastatin Calcium (Lipitor) 40 mg PO DAILY [facility] Stop: 06/29/17 09:01 Last Admin: 12/28/16 09:38 Dose: 40 mg Carvedilol (Coreg) 3.125 mg PO BIDWM [facility] Stop: 06/29/17 08:01 Last Admin: 12/28/16 09:38 Dose: 3.125 mg Cilostazol (Pletal) 100 mg PO BID [facility] Stop: 06/29/17 09:01 Last Admin: 12/28/16 09:38 Dose: 100 mg Dextrose/Water (Dextrose 50% (Syg)) 25 ml IVP AD PRN PRN Reason: Hypoglycemia Stop: 06/28/17 22:30 Fenofibrate (Tricor) 162 mg PO DAILY [facility] Stop: 06/29/17 09:01 Last Admin: 12/28/16 09:38 Dose: 162 mg Fluticasone Propionate (Flonase) 100 mcg NS DAILY [facility] PRN Reason: Protocol Stop: 06/29/17 09:01 Last Admin: 12/28/16 09:44 Dose: Not Given Gabapentin (Neurontin) 800 mg PO QID [facility] Stop: 06/29/17 09:01 Last Admin: 12/28/16 11:52 Dose: 800 mg Glucagon (Glucagen) 1 mg IM ONCE PRN PRN Reason: Hypoglycemia Stop: 06/28/17 22:30 Glucose (Gluctose) 15 gm PO ONCE PRN PRN Reason: Hypoglycemia Stop: 06/28/17 22:30 Glucose (Gluctose) 30 gm PO ONCE PRN PRN Reason: Hypoglycemia Stop: 06/28/17 22:30 Lisinopril/HCTZ (Prinzide 10-12.5) 2 each PO DAILY [facility] Stop: 06/29/17 09:01 Last Admin: 12/28/16 09:38 Dose: 2 each Heparin Sodium (Porcine) (Heparin) 2,000 unit IVP Q6H PRN PRN Reason: SEE COMMENTS Stop: 06/29/17 11:00 Dextrose (Dextrose 5%) 1,000 mls @ 100 mls/hr IVC .Q10H PRN PRN Reason: HYPOGLYCEMIA Stop: 06/28/17 22:30 Sodium Chloride (0.9 % Sodium Chloride) 1,000 mls @ 75 mls/hr IVC .[id number] [facility] Stop: 06/28/17 22:46 Last Admin: 12/27/16 23:13 Dose: 75 mls/hr Heparin Sodium/Dextrose (Heparin 25,000 Unit/500 Ml D5w) 25,000 unit in 500 mls @ 20.928 mls/hr IVC .[id number] LEANNA; 12 UNIT/KG/HR PRN Reason: Protocol Stop: 06/29/17 11:01 Last Admin: 12/28/16 11:58 Dose: 12 unit/kg/hr, 20.928 mls/hr Insulin Human Lispro (Humalog) 0 units SQ TIDAC [facility] PRN Reason: Protocol Stop: 06/29/17 07:31 Last Admin: 12/28/16 11:48 Dose: Not Given Insulin Human Lispro (Humalog) 0 units SQ [facility] PRN Reason: Protocol Stop: 06/29/17 21:01 Isosorbide Mononitrate (Imdur) 30 mg PO DAILY [facility] Stop: 06/29/17 09:01 Last Admin: 12/28/16 09:39 Dose: 30 mg Loratadine (Claritin) 10 mg PO DAILY [facility] Stop: 06/29/17 09:01 Last Admin: 12/28/16 09:38 Dose: 10 mg Lorazepam (Ativan) 0.5 mg IVP Q4HR PRN PRN Reason: Agitation Stop: 06/29/17 00:01 Magnesium Oxide (Mag-Ox) 400 mg PO DAILY [facility] PRN Reason: Protocol Stop: 06/29/17 09:01 Last Admin: 12/28/16 09:38 Dose: 400 mg Naloxone HCl (Narcan) 0.4 mg IVP Q2MIN PRN PRN Reason: Opioid Reversal Stop: 06/28/17 22:17 Nicotine (Nicoderm) 14 mg TD DAILY [facility] PRN Reason: Protocol Stop: 06/28/17 22:46 Last Admin: 12/28/16 09:39 Dose: 14 mg Omeprazole (Prilosec) 20 mg PO DAILY@0730 [facility] PRN Reason: Protocol Stop: 06/30/17 07:31 Ondansetron HCl (Zofran) 4 mg IVP Q8HR PRN PRN Reason: Nausea And Vomiting Stop: 06/28/17 22:17 Oxycodone/Acetaminophen (Percocet 7.5/325) 1 each PO Q6H PRN PRN Reason: Moderate to Severe Pain (4-10) Stop: 06/28/17 22:28 Last Admin: 12/28/16 11:52 Dose: 1 each Tiotropium [place] (Spiriva) 18 mcg IH DAILYR [facility] Stop: 06/30/17 10:01 Tizanidine HCl (Zanaflex) 4 mg PO TID PRN PRN Reason: Muscle Spasm Stop: 06/28/17 22:21 Warfarin Sodium (Coumadin Perpt) 1 each PO DAILY@1800 PRN PRN Reason: SEE COMMENTS Stop: 06/29/17 18:01 Warfarin Sodium (Coumadin) 7.5 mg PO 1800 ONE Stop: 12/28/16 18:01 - Imaging and Cardiology Echo: report reviewed - EKG Interpretation EKG results cardiology: personally reviewed Consult Discharge Plan - Plan Referrals: Eduardo Correa MD [Primary Care Provider] - (called and no answer....)
[2016-12-28] MEDS: 0.9 % Sodium Chloride 1,000 ML IVC SCH (15:40)
[2016-12-28] MEDS: Heparin 25,000 UNIT/500 ML D5W 25,000 UNIT/500 ML MLS IVC SCH (15:40)
--- NOTE | 2016-12-28 16:36 | Electrocardiograph Report ---
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
[2016-12-28] MEDS ORDERED: Warfarin perPT PO PRN (18:00)
[2016-12-28] MEDS ORDERED: *HR* Warfarin 7.5 MG TABLET PO ONE (18:00)
[2016-12-28] MEDS ORDERED: Insulin LISPRO 300 UNITS/3 ML VIAL SQ SCH (21:00)
[2016-12-29 00:42] LABS: Hematocrit 40.1 % (37.5-50.1); Mean Corpuscular HGB Conc 32.9 g/dL (31.6-35.5); Mean Corpuscular Hemoglobin 28.9 pg (28.0-33.3); Mean Corpuscular Volume 87.9 fL (83.0-100.0); Mean Platelet Volume 10.4 fL (9.4-12.4); Red Blood Count 4.56 M/mcL (4.19-5.50); Red Cell Distribution Width 13.3 % (11.5-14.5)
[2016-12-29 00:44] LABS: Hemoglobin 13.2 g/dL (12.9-16.9)
[2016-12-29 00:47] LABS: INR 1.7; Prothrombin Time 18.4 Seconds (9.4-12.1)
[2016-12-29 00:58] LABS: BUN/Creatinine Ratio 16 (6-26); Blood Urea Nitrogen 13 mg/dL (8-26); Calcium 8.9 mg/dL (8.6-10.8); Carbon Dioxide 24 mEq/L (19-29); Chloride 107 mEq/L (98-109); Glucose 119 mg/dL (70-99); Magnesium 1.7 mg/dL (1.6-2.6); Osmolality,Calculated 297 (280-300); Potassium 4.2 mEq/L (3.5-4.5); Sodium 143 mEq/L (136-145); eGFR For African Americans > 60 (> 60); eGFR For Non-African Americans > 60 (> 60)
[2016-12-29] MEDS: 0.9 % Sodium Chloride 1,000 ML IVC SCH (05:09)
[2016-12-29] MEDS: Insulin LISPRO 300 UNITS/3 ML VIAL SQ SCH ×2 (07:53→12:06)
[2016-12-29] MEDS: Fenofibrate 54 MG TABLET PO SCH (08:04)
[2016-12-29] MEDS: Loratadine 10 MG TABLET PO SCH (08:04)
[2016-12-29] MEDS: Isosorbide MONOnitrate (24 HR) 30 MG TAB.ER.24H PO SCH (08:04)
[2016-12-29] MEDS: Magnesium Oxide 400 MG TABLET PO SCH (08:04)
[2016-12-29] MEDS: Gabapentin 400 MG CAPSULE PO SCH ×2 (08:04→12:07)
[2016-12-29] MEDS: *HR* OxyCODONE/APAP 7.5/325 TABLET PO PRN (08:05)
[2016-12-29] MEDS: Nicotine 14 MG PATCH.TD24 TD SCH (08:05)
[2016-12-29] MEDS: Aspirin 81 MG TAB.CHEW PO SCH (08:05)
[2016-12-29] MEDS: Fluticasone Propionate Nasal 50 MCG/SPRAY BOTTLE NS SCH (08:06)
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
[2016-12-29] MEDS ORDERED: Tiotropium 18 MCG inhalation IH SCH (10:00)
[2016-12-29] MEDS: Heparin 25,000 UNIT/500 ML D5W 25,000 UNIT/500 ML MLS IVC SCH (11:19)
[2016-12-29 11:35] VITALS: BP 155/86
[2016-12-29] MEDS ORDERED: *HR* Enoxaparin 100 MG/ML SYRINGE SQ ONE (13:19)
[2016-12-29] MEDS ORDERED: *HR* Enoxaparin 150 MG/ML SYRINGE SQ ONE (13:31)
[2016-12-29] MEDS ORDERED: *HR* Warfarin 7.5 MG TABLET PO ONE (18:00)
== END 2016-12-29 14:49 | disposition home or self-care (01) ==
LOC: EMEROO 16:31 → 2ANU 16:31 → SUATTDRO 19:14 → 2ANU 20:08
PROVIDERS: ADMIT Internal Medicine; ATTEND Internal Medicine

== ENCOUNTER 2018-03-01 16:30 | Observation (INO) ==
[2018-03-01] MEDS ORDERED: Aspirin 325 MG TABLET PO ONE (17:05)
--- NOTE | 2018-03-01 17:09 | Emergency Department Note ---
Addendum entered and electronically signed by Yaakov Talbert DO 03/06/18 04:30: Original Note: Disposition Clinical Impression: COPD exacerbation Chest pain Qualifiers: Chest pain type: unspecified Qualified Code(s): R07.9 - Chest pain, unspecified Disposition: Admitted As Inpatient Condition: Fair Time of Disposition: 17:59 General Adult HPI - General Chief complaint: ED Chest Pain Stated complaint: CP Time Seen by Provider: 03/01/18 16:39 Source: patient Mode of arrival: ambulatory Limitations: no limitations Nursing Notes Reviewed: Yes Vital Signs Reviewed: Yes - History of Present Illness HPI Narrative: Patient is a 52-year-old male with a past medical history of factor V deficiency, COPD, CHF, NV, stage II kidney disease presents to the emergency department for evaluation of chest pain. Patient's chest pain started at approximately 8:00 this morning patient states that he was sitting down when the chest pain came on describes it as a left-sided aching pain that was initially an 8/10. Nonexertional, no radiation, associated with diaphoresis and nausea. Patient denies dyspnea. States he did not take his nitroglycerin today. Patient also admits to having known blood clots in the bilateral lower extremities and states that he has plans with vascular surgery to undergo stenting of his lower extremities due to vessel occlusion. Patient states that he was also seen last year and was told that he had a heart attack and had a heart catheter performed however no stents were placed. States he is currently on Coumadin for his DVTs. Pain Scale: 8 - Related Data Home Medications Medication Instructions Recorded Confirmed Atorvastatin [Lipitor] 40 mg PO DAILY 05/06/15 03/01/18 Magnesium Oxide [Magnesium] 400 mg PO DAILY 05/06/15 03/01/18 Pantoprazole Sodium [Protonix] 40 mg PO DAILY 05/06/15 03/01/18 [place] Oil/[place]-3 Fatty Acids 1,000 mg PO DAILY 05/06/15 12/27/16 [Fish Oil 500 mg Softgel] Albuterol Sulfate [Ventolin Hfa] 18 gm IH QID PRN 12/30/15 12/27/16 Cilostazol [Pletal] 100 mg PO BID 12/30/15 12/27/16 EPINEPHrine [Epipen] 0.3 mg IM QMONTH PRN 12/30/15 03/01/18 Fenofibrate Nanocrystallized 145 mg PO DAILY 12/30/15 03/01/18 [Tricor] Aspirin 81 mg PO DAILY 10/06/16 03/01/18 Carvedilol 3.125 mg PO BID 10/06/16 03/01/18 Cetirizine HCl [Zyrtec] 10 mg PO DAILY 10/06/16 12/27/16 Fluticasone Propionate Nasal 2 spray NS DAILY 10/06/16 12/27/16 [Flonase] Isosorbide MONOnitrate (24 HR) 30 mg PO DAILY 10/06/16 12/27/16 [Imdur] Lisinopril/Hydrochlorothiazide 1 each PO DAILY 10/06/16 12/27/16 [Zestoretic 20-25 mg Tablet] Tiotropium [place] [Spiriva 1 puff IH DAILY 10/06/16 12/27/16 Respimat] Tizanidine HCl 4 mg PO TID PRN 10/06/16 03/01/18 Warfarin [Coumadin] 6 mg PO TUTHSA 10/06/16 03/01/18 Gabapentin [Neurontin] 800 mg PO QID 12/26/16 03/01/18 Oxycodone HCl/Acetaminophen 1 tab PO Q6H PRN 12/26/16 12/27/16 [Percocet 7.5-325 mg Tablet] Warfarin [Coumadin] 5 mg PO SUMOWEFR 12/26/16 03/01/18 OxyCODONE/APAP 10/325 [Percocet 1 tab PO Q4H PRN 03/01/18 03/01/18 10/325 MG] Allergies Allergy/AdvReac Type Severity Reaction Status Date / Time venom-honey bee Allergy Anaphylaxis Verified 12/25/16 22:14 [bee venom (honey bee)] All systems ED: reviewed and negative except as stated. Review of Systems: As Per HPI Constitutional: Reports: chills. Denies: fever Cardiovascular: Reports: chest pain. Denies: palpitations, dyspnea on exertion, edema, syncope Respiratory: Reports: wheezes. Denies: cough, dyspnea, sputum production Gastrointestinal: Reports: nausea. Denies: abdominal pain, vomiting, diarrhea Musculoskeletal: Denies: back pain Past Medical History - Past Medical History Attestation: Yes The following information was validated with the patient. Medical history: Reports: atrial fibrillation, DVT Surgical history: Reports: cholecystectomy, herniorrhaphy Psychiatric history: Reports: anxiety, depression - Social History Smoking Status: Current every day smoker Smokeless Tobacco Status: No Alcohol use: Reports: none Drug use: Reports: none Physical Exam CONSTITUTIONAL: A&O X 3, patient bowel sounds are within normal limits, however he does appear diaphoretic on exam. HEAD: Normocephalic; atraumatic EYES: PERRL, no scleral icterus NOSE: The nose is normal in appearance without rhinorrhea NECK: No JVD or distended neck veins RESP: Normal chest excursion with respiration; patient has mild wheezing throughout all lung christina. CARD: Regular rhythm, without murmurs, rub or gallop ABD: Non-distended; non-tender, soft, without rigidity, rebound or guarding,no pulsatile mass CHEST: No pain with palpation SKIN: Normal for age and race; warm and dry without diaphoresis ; no apparent lesions EXTREMITIES: Pulses are 2 plus and equal times 4 extremities, no peripheral edema or calf muscle pain - General Limitations: no limitations General appearance: alert Course Course Narrative: Discussed with patient plan is times evaluate him for his chest pain his EKG is nonischemic. The basal having active chest pain plan is to trial nitroglycerin he also receive a full dose of aspirin. - Reevaluation(s) Reevaluation #1: Patient's chest pain completely resolved with the second dose nitroglycerin. Patient's lab work was unremarkable. Discussed patient's case with the hospitalist on-call plan to admit the patient for his chest pain given his moderate HEART score. Vital Signs Temperature 98.2 F 03/01/18 16:33 Pulse Rate 89 03/01/18 16:33 Respiratory Rate 22 03/01/18 16:33 Blood Pressure 163/83 03/01/18 16:33 O2 Sat by Pulse Oximetry 98 03/01/18 16:33 Temperature 97.7 F 03/01/18 19:48 Pulse Rate 64 03/01/18 19:48 Respiratory Rate 18 03/01/18 19:48 Blood Pressure 111/70 03/01/18 20:47 O2 Sat by Pulse Oximetry 96 03/01/18 19:48 Oxygen Delivery Oxygen Delivery Nasal Cannula Medical Decision Making - Medical Records Medical records reviewed: Yes I reviewed the patient's medical records. - Lab Data Lab results reviewed: Yes I reviewed the patient's lab results. Result diagrams: 03/01/18 17:08 03/01/18 17:08 Lab Results 03/01/18 03/01/18 03/01/18 Range/Units 17:08 17:08 17:08 WBC 14.1 H (4.3-11.1) K/mcL RBC 5.67 H (4.19-5.50) M/mcL Hgb 16.6 (12.9-16.9) g/dL Hct 48.0 (37.5-50.1) % MCV 84.7 (83.0-100.0) fL MCH 29.3 (28.0-33.3) pg MCHC 34.6 (31.6-35.5) g/dL RDW 12.7 (11.5-14.5) % Plt Count 284 (140-400) K/mcL MPV 10.2 (9.4-12.4) fL Immature Gran % 0.7 (0-4) % Seg Neutrophils % 61.5 % Lymphocytes % 24.1 % Monocytes % 8.1 % Eosinophils % 4.6 % Basophils % 1.0 % Neutrophils # 8.7 (1.6-8.9) K/mcL Lymphocytes # 3.4 (0.6-4.6) K/mcL Monocytes # 1.1 (0.0-1.3) K/mcL Eosinophils # 0.6 (0.0-0.6) K/mcL Basophils # 0.1 (0.0-0.2) K/mcL PT 22.1 H (9.4-12.1) Seconds INR 2.0 APTT 50.9 H (26.0-36.0) Seconds Sodium (136-145) mEq/L Potassium (3.5-5.1) mEq/L Chloride (98-107) mEq/L Carbon Dioxide (23-29) mEq/L BUN (6-20) mg/dL Creatinine (0.70-1.30) mg/dL Est GFR ( Amer) (> 60) Est GFR (Non-Af Amer) (> 60) BUN/Creatinine Ratio (6-26) Glucose (70-105) mg/dL Calculated Osmolality (280-300) Calcium (8.6-10.3) mg/dL Total Bilirubin (0.3-1.0) mg/dL Direct Bilirubin (0.0-0.2) mg/dL Indirect Bilirubin (0.0-1.2) mg/dL AST (13-39) Units/L ALT (7-52) Units/L Alkaline Phosphatase (34-104) Units/L Troponin I (< 0.04) ng/mL B-Natriuretic Peptide 13 (Less than 100) pg/mL Serum Total Protein (6.4-8.9) g/dL Albumin (3.5-5.7) g/dL Globulin (2.4-3.5) g/dL Albumin/Globulin Ratio (1.1-2.2) 03/01/18 Range/Units 17:08 WBC (4.3-11.1) K/mcL RBC (4.19-5.50) M/mcL Hgb (12.9-16.9) g/dL Hct (37.5-50.1) % MCV (83.0-100.0) fL MCH (28.0-33.3) pg MCHC (31.6-35.5) g/dL RDW (11.5-14.5) % Plt Count (140-400) K/mcL MPV (9.4-12.4) fL Immature Gran % (0-4) % Seg Neutrophils % % Lymphocytes % % Monocytes % % Eosinophils % % Basophils % % Neutrophils # (1.6-8.9) K/mcL Lymphocytes # (0.6-4.6) K/mcL Monocytes # (0.0-1.3) K/mcL Eosinophils # (0.0-0.6) K/mcL Basophils # (0.0-0.2) K/mcL PT (9.4-12.1) Seconds INR APTT (26.0-36.0) Seconds Sodium 139 (136-145) mEq/L Potassium 3.8 (3.5-5.1) mEq/L Chloride 103 (98-107) mEq/L Carbon Dioxide 25 (23-29) mEq/L BUN 11 (6-20) mg/dL Creatinine 0.64 L (0.70-1.30) mg/dL Est GFR ( Amer) > 60 (> 60) Est GFR (Non-Af Amer) > 60 (> 60) BUN/Creatinine Ratio 17 (6-26) Glucose 93 (70-105) mg/dL Calculated Osmolality 287 (280-300) Calcium 9.8 (8.6-10.3) mg/dL Total Bilirubin 0.8 (0.3-1.0) mg/dL Direct Bilirubin 0.1 (0.0-0.2) mg/dL Indirect Bilirubin 0.7 (0.0-1.2) mg/dL AST 38 (13-39) Units/L ALT 36 (7-52) Units/L Alkaline Phosphatase 90 (34-104) Units/L Troponin I < 0.03 (< 0.04) ng/mL B-Natriuretic Peptide (Less than 100) pg/mL Serum Total Protein 7.3 (6.4-8.9) g/dL Albumin 4.7 (3.5-5.7) g/dL Globulin 2.6 (2.4-3.5) g/dL Albumin/Globulin Ratio 1.8 (1.1-2.2) - Radiology Data Radiology results reviewed: Yes I reviewed the patient's radiology results. Chest X-Ray 03/01/18 16:35 IMPRESSION: No acute cardiopulmonary disease. D/ / Elvis Kelsey MD / Elvis Kelsey MD Interpreting Provider: Elvis Kelsey MD Attestation Statement - Attestation Attestation: I examined this patient and my medical decision-making was reviewed with the Resident Physician, Dr. Talbert. I agree with the documented findings, disposition and treatment plan as described except to the extent set forth below. Patient is a 52-year-old white male with a history of COPD, CHF, A. fib, Dr. Sruthi Pitts with currently being treated for DVT. Patient presents today with complaints of chest pain, left-sided began at 8 AM this morning and has been constant throughout the day. Patient is on Imdur at home but did not take any of this for his pain. Patient states it is nonexertional non-radiation, but associated with nausea and diaphoresis. Patient also with some audible nasal congestion scleral injection and what appear to be some URI symptoms although denies any change in cough or production of cough. Patient denies any abdominal pain no vomiting and no flank or back pain. I agree with patient's physical exam findings as documented. Vital signs are stable. EKG is unremarkable for any acute ischemia. Chest x-rays unremarkable. Patient had aspirin and nitroglycerin here and following 2 sublingual nitroglycerin tabs he is pain-free and resting comfortably. Patient underwent full lab evaluation including troponin which was within normal limits and INR is found be therapeutic at 2. Patient will be admitted to hospitalist service for further evaluation of his chest pain he was given albuterol inhalers as well with some improvement in his expiratory wheezing. Patient has not been hypoxic or showing any signs of respiratory distress throughout his ED course. Case discussed with hospitalist who accepted patient for admission for further evaluation and management.
[2018-03-01] MEDS ORDERED: Ipratropium/Albuterol Neb 3 ML IH ONE (17:13)
[2018-03-01] MEDS: Nitroglycerin 0.4 MG TAB.SUBL SL PRN ×2 (17:23→17:32)
[2018-03-01 17:34] LABS: Basophils # 0.1 K/mcL (0.0-0.2); Eosinophils # 0.6 K/mcL (0.0-0.6); Eosinophils % 4.6 %; Hemoglobin 16.6 g/dL (12.9-16.9); Immature Granulocytes % 0.7 % (0-4); Lymphocytes # 3.4 K/mcL (0.6-4.6); Lymphocytes % 24.1 %; Mean Corpuscular HGB Conc 34.6 g/dL (31.6-35.5); Mean Corpuscular Hemoglobin 29.3 pg (28.0-33.3); Mean Corpuscular Volume 84.7 fL (83.0-100.0); Mean Platelet Volume 10.2 fL (9.4-12.4); Monocytes # 1.1 K/mcL (0.0-1.3); Monocytes % 8.1 %; Neutrophils # 8.7 K/mcL (1.6-8.9); Platelet Count 284 K/mcL (140-400); Red Blood Count 5.67 M/mcL (4.19-5.50); Red Cell Distribution Width 12.7 % (11.5-14.5); Segmented Neutrophils % 61.5 %
[2018-03-01 17:41] LABS: Prothrombin Time 22.1 Seconds (9.4-12.1)
[2018-03-01 17:43] LABS: Activated Partial Thrombo Time 50.9 Seconds (26.0-36.0)
[2018-03-01 17:44] LABS: BUN/Creatinine Ratio 17 (6-26); Blood Urea Nitrogen 11 mg/dL (6-20); Calcium 9.8 mg/dL (8.6-10.3); Carbon Dioxide 25 mEq/L (23-29); Chloride 103 mEq/L (98-107); Glucose 93 mg/dL (70-105); Osmolality,Calculated 287 (280-300); Potassium 3.8 mEq/L (3.5-5.1); Sodium 139 mEq/L (136-145); eGFR For Non-African Americans > 60 (> 60)
[2018-03-01 17:45] LABS: Troponin I < 0.03 ng/mL (< 0.04)
[2018-03-01] MEDS ORDERED: Isovue-370 500 ML INFUS..BTL IV ONE (17:52)
[2018-03-01] MEDS ORDERED: Naloxone 0.4 MG/ML INJ IVP PRN (17:59)
[2018-03-01] MEDS ORDERED: Nitroglycerin 0.4 MG TAB.SUBL SL PRN (18:05)
[2018-03-01 18:29] LABS: Alanine Aminotransferase 36 Units/L (7-52); Albumin 4.7 g/dL (3.5-5.7); Albumin/Globulin Ratio 1.8 (1.1-2.2); Alkaline Phosphatase 90 Units/L (34-104); Aspartate Amino Transferase 38 Units/L (13-39); Bilirubin,Direct 0.1 mg/dL (0.0-0.2); Bilirubin,Indirect 0.7 mg/dL (0.0-1.2); Bilirubin,Total 0.8 mg/dL (0.3-1.0); Globulin 2.6 g/dL (2.4-3.5); Total Protein 7.3 g/dL (6.4-8.9)
[2018-03-01] MEDS ORDERED: Ondansetron 4 MG/2 ML VIAL IVP PRN (18:31)
--- NOTE | 2018-03-01 18:36 | Internal Med History&Physical ---
Date of Encounter: 03/01/18 Time of Encounter: 18:30 Internal Medicine - H&P: HPI Chief complaint: chest pain Plans for Post Hospital Care: Home History of present illness: Mr. Nelson is a 52 year old male PMH of Factor V Leiden mutation on warfarin, cerebral aneurism, HTN, and COPD. Patient presented to the ED complaining of chest pain which started while he was driving to work. He describes the pain as 9/10, constant, dull, left sided, lasting about 1 minute when the pain peaked, non radiating, with no aggravating or alleviating factors, associated with shortness of breath, nausea and diaphoresis, for which he decided to come to the ED. He denies abdominal pain, or urinary symptoms. Reports that he has been having a productive cough of clear sputum, denies fever/chills. Patient reports similar episode of chest pain about a week ago which subsided with nitroglycerin. Past Med Surg Social Fam HX - Past Medical History Medical history: atrial fibrillation, DVT Additional medical history: Saccular Aneurysm, Diverticulosis, pre-diabetic, F actor V Leiden, kidney failure, lung nodules, Psychiatric history: anxiety, depression - Past Surgical History Surgical History: cholecystectomy, herniorrhaphy Additional surgical history: left testicle removed, back sx - Social History Smoking Status: Current every day smoker Smokeless Tobacco Status: No Alcohol use: none Drug use: none - Family History Father Family Member Ethnicity: Non- Living Status: Hx Family Cardiac Disorders: Yes (HD, HTN) Hx Family Endocrine Disorder: Yes (DM) Sister Family Member Ethnicity: Non- Living Status: Hx Family Cancer: Yes (Lung/Liver) Mother Adopted: No Family Member Ethnicity: Non- Living Status: Still Living Hx Family Cardiac Disorders: No Hx Family Respiratory Disorders: No Hx Family Cancer: No Hx Family GI Disorders: No Hx Family Endocrine Disorder: No Hx Family Neuromuscular Disorders: No Hx Family Neurologic Disorders: No Hx Family HEENT Disorders: No Hx Family Autoimmune Disorders: Yes (factor 5) Internal Medicine - H&P: Meds Atorvastatin [Lipitor] 40 mg PO DAILY 05/06/15 [History] Magnesium Oxide [Magnesium] 400 mg PO DAILY 05/06/15 [History] Pantoprazole Sodium [Protonix] 40 mg PO DAILY 05/06/15 [History] [place] Oil/[place]-3 Fatty Acids [Fish Oil 500 mg Softgel] 1,000 mg PO DAILY 05/06/15 [History] Albuterol Sulfate [Ventolin Hfa] 18 gm IH QID PRN 12/30/15 [History] Cilostazol [Pletal] 100 mg PO BID 12/30/15 [History] EPINEPHrine [Epipen] 0.3 mg IM QMONTH PRN 12/30/15 [History] Fenofibrate Nanocrystallized [Tricor] 145 mg PO DAILY 12/30/15 [History] Aspirin 81 mg PO DAILY 10/06/16 [History] Carvedilol 3.125 mg PO BID 10/06/16 [History] Cetirizine HCl [Zyrtec] 10 mg PO DAILY 10/06/16 [History] Fluticasone Propionate Nasal [Flonase] 2 spray NS DAILY 10/06/16 [History] Isosorbide MONOnitrate (24 HR) [Imdur] 30 mg PO DAILY 10/06/16 [History] Lisinopril/Hydrochlorothiazide [Zestoretic 20-25 mg Tablet] 1 each PO DAILY 10/06/16 [History] Tiotropium [place] [Spiriva Respimat] 1 puff IH DAILY 10/06/16 [History] Tizanidine HCl 4 mg PO TID PRN 10/06/16 [History] Warfarin [Coumadin] 7.5 mg PO SUTUWETHSA 10/06/16 [History] Gabapentin [Neurontin] 800 mg PO QID 12/26/16 [History] Oxycodone HCl/Acetaminophen [Percocet 7.5-325 mg Tablet] 1 tab PO Q6H PRN 12/26/16 [History] Warfarin [Coumadin] 5 mg PO MOFR 12/26/16 [History] Allergy/AdvReac Type Severity Reaction Status Date / Time venom-honey bee Allergy Anaphylaxis Verified 12/25/16 22:14 [bee venom (honey bee)] All Systems PM: A 10-system review of systems was performed and is negative for pertinent fi ndings except as documented above in the HPI. - Constitutional Constitutional: no chills, no falls, no lethargy, no weakness - EENT Eyes: no pain - Cardiovascular Cardiovascular ROS IM: chest pain, diaphoresis, dyspnea, lightheadedness, no dyspnea on exertion, no irregular heart rhythm, no orthopnea, no paroxysmal nocturnal dyspnea - Respiratory Respiratory: cough, dyspnea, no wheezing, no chest congestion - Gastrointestinal Gastrointestinal: nausea, no abdominal pain, no vomiting - Genitourinary Genitourinary ROS male: no dysuria - Musculoskeletal Musculoskeletal ROS IM: no back pain - Integumentary Integumentary IM: no rash - Neurological Neurological ROS: no weakness - Psychiatric Psychiatric: no anxiety - Endocrine Endocrine IM: no polydipsia, no polyphagia, no polyuria - Hematologic/Lymphatic Hematologic/Lymphatic: no easy bleeding - Allergic/Immunologic Allergic/Immunologic: no wheezing Additional comments: rest of the review of system negative. - Constitutional Vitals: Temp Pulse Resp BP Pulse Ox 98.2 F 69 14 127/85 98 03/01/18 16:48 03/01/18 17:33 03/01/18 17:33 03/01/18 17:33 03/01/18 17:33 Exam: General: Alert and oriented x4. In mild/moderate distress due to nausea and chest pain. Skin: Normal color, no rash, no lesions. HEENT: EOM, pupils equal, round and reactive. Cardiovascular: RRR, Normal S1 & S2, no rubs, murmurs or gallops. . Lungs: CTA b/l, no wheezes or crackles. Abdomen: Obese, Soft, non-tender, no rigidity. Extremities: No deformity, no edema or tenderness, no joint swelling or clubbing. Neurological: Normal cognition and motor skills. Rest of the physical exam is non contributory Internal Med - H&P Results - Labs CBC & Chem 7: 03/01/18 17:08 03/01/18 17:08 Labs: Short CBC 03/01/18 Range/Units 17:08 WBC 14.1 H (4.3-11.1) K/mcL Hgb 16.6 (12.9-16.9) g/dL Hct 48.0 (37.5-50.1) % Plt Count 284 (140-400) K/mcL Neutrophils # 8.7 (1.6-8.9) K/mcL BMP 03/01/18 17:08 Sodium 139 Potassium 3.8 Chloride 103 Carbon Dioxide 25 BUN 11 Creatinine 0.64 L Glucose 93 Calcium 9.8 Cardiac Enzymes 03/01/18 Range/Units 17:08 Troponin I < 0.03 (< 0.04) ng/mL Liver Function 03/01/18 Range/Units 17:08 Total Bilirubin 0.8 (0.3-1.0) mg/dL Direct Bilirubin 0.1 (0.0-0.2) mg/dL AST 38 (13-39) Units/L ALT 36 (7-52) Units/L Alkaline Phosphatase 90 (34-104) Units/L Albumin 4.7 (3.5-5.7) g/dL - Impressions ITS Impressions Chest X-Ray 03/01/18 16:35 IMPRESSION: No acute cardiopulmonary disease. D/ / Elvis Kelsey MD / Elvis Kelsey MD Interpreting Provider: Elvis Kelsey MD - Assessment and plan (1) Chest pain Current Visit: Yes Status: Acute Assessment and plan: possible due to unstable angina? Plan Serial trops nuclear stress test Nitroglycerin 0.4mg/SubL Q5Min x3 if chest pain persist will consider nitro drip and cardiology consult PE unlikely as patient is on Warfarin with a therapeutic INR, CTA of the chest done less than a month ago for similar complains negative Telemetry monitoring urine drug screen tramadol 50mg/PO Q6HR PRN for pain control aspirin 325mg/PO x1 aspirin 81mg/PO daily cardiac nuclear stress test. Qualifiers: Chest pain type: unspecified Qualified Code(s): R07.9 - Chest pain, unspecified (2) COPD (chronic obstructive pulmonary disease) Current Visit: No Status: Chronic Assessment and plan: no wheezing on auscultation. Plan: Duo-Nebs Q4RT PRN Started empirically on antibiotics due to elevated WBC and increase sputum production rapid flu test Qualifiers: COPD type: unspecified COPD Qualified Code(s): J44.9 - Chronic obstructive pulmonary disease, unspecified (3) Factor V Leiden Current Visit: No Status: Chronic Assessment and plan: Will resume warfarin 7mg/PO daily as per pharmacy protocol (4) HLD (hyperlipidemia) Current Visit: No Status: Chronic Assessment and plan: continue atorvastatin 40mg/PO daily Qualifiers: Hyperlipidemia type: pure hypercholesterolemia Qualified Code(s): E78.00 - Pure hypercholesterolemia, unspecified; E78.0 - Pure hypercholesterolemia (5) HTN (hypertension) Current Visit: No Status: Chronic Assessment and plan: will resume patient home medications on carvedilol 3.125mg/PO daily Qualifiers: Hypertension type: essential hypertension Qualified Code(s): I10 - E ssential (primary) hypertension (6) Obesity (BMI 30.0-34.9) Current Visit: No Status: Chronic - Time Spent With Patient Total time spent is greater than 50% in coordination of care (as documented) at patient's floor/unit and/or counseling patient: Greater than 35 minutes (47.)
[2018-03-01] MEDS ORDERED: Azithromycin 500 MG in D5% in Water 250 ML IVPB SCH (19:00)
[2018-03-01] MEDS: Aspirin Enteric Coated 81 MG Tablet PO SCH (20:20)
[2018-03-01] MEDS: D5% in 0.45% NACL 1,000 ML IVC SCH (20:20)
[2018-03-01] MEDS: traMADol 50 MG TABLET PO PRN (20:50)
[2018-03-01] MEDS ORDERED: Warfarin perPT PO PRN (21:26)
[2018-03-01] MEDS ORDERED: *HR* Warfarin 3 MG TABLET PO ONE (22:30)
[2018-03-02 00:53] LABS: Bilirubin,Urine Negative (Negative); Blood,Urine Negative (Negative); Clarity,Urine Clear (Clear); Color,Urine Yellow (Yellow); Glucose,Urine (UA) Normal (Normal); Ketones,Urine Negative (Negative); Leukocyte Esterase,Urine Negative (Negative); Nitrite,Urine Negative (Negative); Protein,Urine Negative (Neg-Trace); Specific Gravity,Urine < 1.005 (1.010-1.025); Urobilinogen,Urine Normal (Normal)
[2018-03-02 01:05] LABS: Amphetamine Screen,Urine Negative ng/mL (Cutoff=1000); Barbiturate Screen,Urine Negative ng/mL (Cutoff=200); Benzodiazepines Screen,Urine Negative ng/mL (Cutoff=200); Cannabinoid Screen,Urine Negative ng/mL (Cutoff = 50); Cocaine Screen,Urine Negative ng/mL (Cutoff= 300); Opiate Screen,Urine Negative ng/mL (Cutoff=300); Phencyclidine Screen,Urine Negative ng/mL (Cutoff=25)
[2018-03-02] MEDS: traMADol 50 MG TABLET PO PRN (03:15)
[2018-03-02 05:23] LABS: INR 1.9; Prothrombin Time 21.1 Seconds (9.4-12.1)
[2018-03-02 05:34] LABS: BUN/Creatinine Ratio 18 (6-26); Blood Urea Nitrogen 11 mg/dL (6-20); Calcium 9.1 mg/dL (8.6-10.3); Carbon Dioxide 29 mEq/L (23-29); Chloride 103 mEq/L (98-107); Chol/HDL Ratio 6.4 (0-4.9); Cholesterol 180 mg/dL (< 200); Glucose 117 mg/dL (70-105); HDL Cholesterol 28 mg/dL (40-59); Magnesium 1.6 mg/dL (1.6-2.6); Osmolality,Calculated 290 (280-300); Phosphorous 3.9 mg/dL (2.7-4.5); Potassium 3.9 mEq/L (3.5-5.1); Sodium 140 mEq/L (136-145); Triglycerides 409 mg/dL (< 150); eGFR For Non-African Americans > 60 (> 60)
[2018-03-02] MEDS ORDERED: Regadenoson 0.4 MG/5 ML SYRINGE IVP ONE (07:51)
--- NOTE | 2018-03-02 09:39 | Discharge Summary ---
- NOTES TO OUTPATIENT PROVIDER Notes to Outpatient Provider: f/u with cardiology within 1-2 weeks of hospital discharge. Orders not resulted at time of discharge: Pending orders 03/01/18 16:35 ECG 12 lead ECG [ECG] Stat 03/01/18 18:47 NM sherri perf SPECT multi [NM] Routine 03/02/18 08:18 CBC no Diff [Complete Blood Count w/o Diff] [HEME] Stat 03/02/18 11:00 Troponin I Q6H 03/03/18 04:00 INR/PT [Prothrombin Time INR] [COAG] AM 0400 03/04/18 04:00 INR/PT [Prothrombin Time INR] [COAG] AM 0400 Date of Encounter: 03/02/18 Time of Encounter: 09:35 - Discharge Diagnosis (1) Chest pain Priority: Primary Status: Resolved Qualifiers: Chest pain type: unspecified Qualified Code(s): R07.9 - Chest pain, unspecified (2) COPD (chronic obstructive pulmonary disease) Priority: Secondary Status: Chronic Qualifiers: COPD type: unspecified COPD Qualified Code(s): J44.9 - Chronic obstructive pulmonary disease, unspecified (3) Factor V Leiden Priority: Secondary Status: Chronic (4) HLD (hyperlipidemia) Priority: Secondary Status: Chronic Qualifiers: Hyperlipidemia type: pure hypercholesterolemia Qualified Code(s): E78.00 - Pure hypercholesterolemia, unspecified; E78.0 - Pure hypercholesterolemia (5) HTN (hypertension) Priority: Secondary Status: Chronic Qualifiers: Hypertension type: essential hypertension Qualified Code(s): I10 - Essential (primary) hypertension (6) Obesity (BMI 30.0-34.9) Priority: Secondary Status: Chronic (7) Leukocytosis Priority: Secondary Status: Acute Assessment and Plan: Most likely reactive due to pain. No clear source of infection. Qualifiers: Leukocytosis type: unspecified Qualified Code(s): D72.829 - Elevated white blood cell count, unspecified Hospital course: Mr. Nelson is a 52 year old male PMH of Factor V Leiden mutation on warfarin, cerebral aneurism, HTN, and COPD. Patient presented to the ED complaining of chest pain which started while he was driving to work. Patient admitted to the hospital to r/o ACS, trops negative, no EKG changes, cardiac nuclear stress test negative. Patient chest pain resolved with pain management. PE unlike as patient is on full dose anticoagulation with a therapeutic INR on warfarin due to Factor V leiden deficiency. As per patient he has been in home hospice for pain management for the past 2 months. When asked about the reason he was placed on hospice he does not have a clear explanation. Patient's acute symptoms have resolved, and patient is hemodynamically stable to be discharged home. - Time Spent with Patient Total time spent providing and/or coordinating discharge services: Greater than 30 minutes (35) - Discharge Medications Home Medications: Atorvastatin [Lipitor] 40 mg PO DAILY 05/06/15 [History] Magnesium Oxide [Magnesium] 400 mg PO DAILY 05/06/15 [History] Pantoprazole Sodium [Protonix] 40 mg PO DAILY 05/06/15 [History] Albuterol Sulfate [Ventolin Hfa] 18 gm IH QID PRN 12/30/15 [History] Cilostazol [Pletal] 100 mg PO BID 12/30/15 [History] EPINEPHrine [Epipen] 0.3 mg IM QMONTH PRN 12/30/15 [History] Fenofibrate Nanocrystallized [Tricor] 145 mg PO DAILY 12/30/15 [History] Aspirin 81 mg PO DAILY 10/06/16 [History] Carvedilol 3.125 mg PO BID 10/06/16 [History] Cetirizine HCl [Zyrtec] 10 mg PO DAILY 10/06/16 [History] Fluticasone Propionate Nasal [Flonase] 2 spray NS DAILY 10/06/16 [History] Isosorbide MONOnitrate (24 HR) [Imdur] 30 mg PO DAILY 10/06/16 [History] Lisinopril/Hydrochlorothiazide [Zestoretic 20-25 mg Tablet] 1 each PO DAILY 10/06/16 [History] Tiotropium [place] [Spiriva Respimat] 1 puff IH DAILY 10/06/16 [History] Tizanidine HCl 4 mg PO TID PRN 10/06/16 [History] Warfarin [Coumadin] 6 mg PO TUTHSA 10/06/16 [History] Gabapentin [Neurontin] 800 mg PO QID 12/26/16 [History] Oxycodone HCl/Acetaminophen [Percocet 7.5-325 mg Tablet] 1 tab PO Q6H PRN 12/26/16 [History] Warfarin [Coumadin] 5 mg PO SUMOWEFR 12/26/16 [History] OxyCODONE/APAP 10/325 [Percocet 10/325 MG] 1 tab PO Q4H PRN 03/01/18 [History] FentaNYL PATCH [Duragesic] 25 mcg TD Q72H 03/02/18 [History] FentaNYL PATCH [Duragesic] 100 mcg TD Q72H 03/02/18 [History] Allergies/Adverse Reactions: Allergy/AdvReac Type Severity Reaction Status Date / Time venom-honey bee Allergy Anaphylaxis Verified 12/25/16 22:14 [bee venom (honey bee)] Date of admission: 03/01/18 18:13 Primary care physician: PCP NONE - Constitutional Vitals: Temp Pulse Resp BP Pulse Ox 97.8 F 62 17 111/68 94 03/02/18 03:48 03/02/18 03:48 03/02/18 03:48 03/02/18 03:48 03/02/18 03:48 Exam: General: Alert and oriented x4. In no acute distress. Skin: Normal color, no rash, no lesions. HEENT: EOM, pupils equal, round and reactive. Cardiovascular: RRR, Normal S1 & S2, no rubs, murmurs or gallops. . Lungs: Clear to auscultation bilaterally, no wheezes or crackles. Abdomen: Obese, Soft, non-tender, no rigidity. NABS in all 4 quadrants Extremities: No edema. Neurological: Normal cognition. CN II-XII intact. Rest of the physical exam is non contributory - Patient Status Disposition: Home, Self-Care Condition: Good Functional capacity at discharge: independent ambulation Overall status at discharge: patient is back to baseline - Discharge Instructions Follow Up With: NONE,PCP [Primary Care Provider] - - Diet and Activity Activity: resume usual activities as tolerated Diet: low salt diet
[2018-03-02] MEDS: D5% in 0.45% NACL 1,000 ML IVC SCH (09:49)
[2018-03-02] MEDS: Aspirin Enteric Coated 81 MG Tablet PO SCH (09:50)
[2018-03-02 09:55] LABS: Hematocrit 46.6 % (37.5-50.1); Hemoglobin 15.9 g/dL (12.9-16.9); Mean Corpuscular HGB Conc 34.1 g/dL (31.6-35.5); Mean Corpuscular Hemoglobin 29.3 pg (28.0-33.3); Mean Platelet Volume 10.4 fL (9.4-12.4); Platelet Count 227 K/mcL (140-400); Red Blood Count 5.42 M/mcL (4.19-5.50); Red Cell Distribution Width 12.7 % (11.5-14.5)
[2018-03-02 11:40] VITALS: BP 129/74
[2018-03-02] MEDS ORDERED: *HR* Warfarin 7.5 MG TABLET PO SCH (18:00)
--- NOTE | 2018-03-02 19:43 | Electrocardiograph Report ---
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
== END 2018-03-02 12:57 | disposition home or self-care (01) ==
LOC: EMEROOARM 16:30 → 3BNU 16:30
PROVIDERS: ADMIT Internal Medicine; ATTEND Internal Medicine